=== PATIENT | female | born 1960 ===

== ENCOUNTER → 2022-09-12 09:43 | Outpatient (BNVA) | payer OTHER, SELFPAY | PROVIDERS: PCP Physician Assistant; Visit Provider Nurse Practitioner Family | DX: M54.50 Low back pain, unspecified (principal); M79.605 Pain in left leg; M47.816 Spondylosis without myelopathy or radiculopathy, lumbar region; M62.830 Muscle spasm of back; M25.562 Pain in left knee | CPT/HCPCS: 99202 ==

== ENCOUNTER 2023-08-24 10:33 | Outpatient (AMB) | payer OTHER, SELFPAY ==
[2023-08-24 11:05] VITALS: BP 158/87; PULSE 70; O2SAT 100; BMI 28.8
--- NOTE | 2023-08-24 11:05 | A.OFFVIS_ITS ---
Intake Vital Signs 3 08/24/23 11:05 Height 5 ft 2 in Weight 157 lb 6 oz BMI 28.8 BP 158/87 H Blood Pressure Location Lt brachial Position Sitting Pulse 70 Pulse Source Pulse Oximeter Pulse Oximetry (%) 100 Oxygen Delivery Method Room Air Intake Visit Reasons: LEFT LEG PAIN Intake Note: Pain today 04/04 General Operator Required: No Accompanied by: Self / Same As Patient Allergies No Known Allergies Allergy (Verified 08/24/23 11:13) HPI HPI Comments 2 History of Present Illness0 Details Patient presents today for follow up for worsening lower back pain with left sided radiculopathy. She was initially seen in our office in August 2022. Patient denies any recent trauma, injury, or falls. She completed 3 sessions of physical therapy at [facility] and had to discontinue due to increase pain. Pain increases with walking, prolonged sitting or standing or forward flexion, bending and extension. She avoids NSAIDs due to kidney disease and has been modifying her activities and applying lidocaine patches with minimal relief. Patient has severe L4-L5 and moderate L5-S1 degenerative changes per last lumbar xray imaging. We will proceed with obtaining lumbar spine MRI to assess for neural integrity and compression as well as degenerative changes on the endplates with any Modic changes. Patient denies any fever, weight loss, abdominal or groin pain, bladder or bowel dysfunction or saddle anesthesia. Patient reports intermittent weakness in her left lower extremity especially with prolonged walking. PRIOR: Patient is a pleasant 62 years old female presents with one year of lower back pain without any inciting events. Denies any injury, trauma, or falls. Her back pain is axial and also radiates to her left lower extremity posteriorly with numbness and tingling in her left calf. Pain is described as constant hot burning, scalding, searing, tingling, stinging, dull, sore, hurting, aching, and heavy. Pain is increased with walking, sitting, standing, changing positions, and weather changes. Her worst pain is upon awakening in the morning with significant stiffness and gets better as the day goes on with mild activity. Pain is rated at 9/10. She denies any previous physical therapy, massage, chiropractic manipulation, or aqua therapy. She has been treating her pain with Tylenol, diclofenac gel, heat therapy and rest. She cannot take NSAIDs due to CKD stage 3a. Patient reports she is followed by nephrology and most recent labwork did not indicate any therapy changes. Patient denies any fever, chills, weight loss, bladder or bowel incontinence, or saddle anesthesia. Patient is a smokes 6-7 cigarettes per day. She reports she quit smoking 6 years and restarted smoking due to stress in her life and not ready to quit smoking at this time. Patient is undergoing low CT dose lung scan soon. She drinks 3 cups of coffee a day. [facility] Medical History Hyperlipidemia Stage 3a chronic kidney disease Hypertension Right lumbar radiculopathy Lumbar disc disease Review of Systems Const All systems reviewed & are unremarkable except as noted in HPI and below Physical Exam Vital Signs: Last Vital Signs Pulse 70 08/24/23 11:05 BP 158/87 H 08/24/23 11:05 Pulse Ox 100 08/24/23 11:05 Oxygen Delivery Method Room Air 08/24/23 11:05 BMI result Body Mass Index 28.8 General: Appears afebrile. Alert and oriented. Mood and affect appropriate. Follows and participates in conversation appropriately. Respiratory effort is unlabored. No cough. Able to transition from sit to stand unassisted. Ambulates with bilaterally normal heel strike and toe off, reports unsteadiness on the left side with prolonged walking. Back/Spine/Pelvis Other: Limited lumbar ROM due to pain. Antalgic gait. No limping. Lumbar flexion and extension reproduce moderate pain. Mild midline tenderness overlying lower lumbar spinous processes. Painful facet loading bilaterally. 2+ pedal pulses bilaterally. Straight leg rise with dorsiflexion positive on the left, diffuse on the right. Diminished patellar and achilles reflexes bilaterally. Sean?s test positive bilaterally. No groin pain with I/E hip rotations. Unable to complete exam due to significant exacerbation of pain. Cervical Spine: loss of normal cervical lordosis, cervical muscular tenderness and No Cervical spine tenderness Thoracic/Lumbar Spine: thoracic and lumbar spine normal to inspection, No Thoracic/lumbar spine scar(s), Lasegue's sign positive (left>right) bilateral, pain with thoraco-lumbar ROM, paraspinal muscle tenderness, thoraco-lumbar ROM limited, No thoracic spinal tenderness, lumbar spinal tenderness (L4-S1) and straight leg raise positive bilateral at 50 degrees Pelvis: buttock tenderness bilaterally Sacroiliac joints: bilaterally tender to palpation Results Reviewed Results Reviewed: Assessment & Plan Assessment & Plan (1) Low back pain radiating to left lower extremity: Code(s): M54.50 - Low back pain, unspecified; M79.605 - Pain in left leg (2) Lumbar spondylosis: Code(s): M47.816 - Spondylosis without myelopathy or radiculopathy, lumbar region (3) Lumbar spinal stenosis: Code(s): M48.061 - Spinal stenosis, lumbar region without neurogenic claudication (4) Vertebrogenic low back pain: Code(s): M54.51 - Vertebrogenic low back pain Plan Patient experiences spinal stenosis related pain with discogenic and facetogenic pain components. We will proceed with obtaining lumbar spine MRI to assess for neural integrity and compression as well as degenerative changes on the endplates with any Modic changes. The back pain is function and mobility limiting and has been resistant to conservative treatments. Script provided for gabapentin at low dose for low back pain with radicular symptoms. She cannot take NSAIDs due to CKD. Side effects and precautions were reviewed with patient. Patient will return to the clinic to discuss results of the MRI findings when it is done and consider interventional therapy as indicated. Patient is aware to call if pain worsens or if he develops any red flag symptoms to seek emergency care. Patient denies any cauda equina syndrome symptoms at this time. All questions and concerns have been and patient agreed with the plan. Follow-up for MRI results and sooner as needed. Orders: Orders 2 MR lumbar spine wo con Today M47.816 - Spondylosis without myelopathy or radiculopathy, lumbar region, M48.061 - Spinal stenosis, lumbar region without neurogenic claudication, M54.50 - Low back pain, unspecified, M79.605 - Pain in left leg Medications: New 2 gabapentin 100 mg PO BEDTIME 30 caps 0RF pain M48.061 - Spinal stenosis, lumbar region without neurogenic claudication, M54.50 - Low back pain, unspecified, M79.605 - Pain in left leg Coding Level of Care Code Est Pt Level 4 (68285) Diagnoses Low back pain radiating to left lower extremity M54.50; M79.605 Lumbar spondylosis M47.816 Lumbar spinal stenosis M48.061 Vertebrogenic low back pain M54.51
== END 2023-08-24 11:39 | disposition home or self-care (01) ==
PROVIDERS: PCP Physician Assistant; Visit Provider Nurse Practitioner Family
DX: M54.50 Low back pain, unspecified (principal); M79.605 Pain in left leg; M47.816 Spondylosis without myelopathy or radiculopathy, lumbar region; M48.061 Spinal stenosis, lumbar region without neurogenic claudication; M54.51 Vertebrogenic low back pain
CPT/HCPCS: 99214

== ENCOUNTER → 2023-08-24 10:33 | Outpatient (BNVA) | payer OTHER, SELFPAY | PROVIDERS: PCP Physician Assistant; Visit Provider Nurse Practitioner Family | DX: M54.50 Low back pain, unspecified (principal); M79.605 Pain in left leg; M47.816 Spondylosis without myelopathy or radiculopathy, lumbar region; M48.061 Spinal stenosis, lumbar region without neurogenic claudication; M54.51 Vertebrogenic low back pain | CPT/HCPCS: 99212 ==

== ENCOUNTER 2023-10-13 10:21 | Outpatient (REF) | payer OTHER, SELFPAY ==
--- NOTE | ~2023-10-13 | MR_ITS ---
EXAMINATION: MR LUMBAR SPINE WITHOUT CONTRAST CLINICAL INFORMATION: Low back pain. COMPARISON: No relevant prior imaging. TECHNIQUE: MRI of the lumbar spine was obtained using routine sequences without contrast. FINDINGS: Alignment is normal. Vertebral body heights are preserved. There are type I degenerative endplate changes at L5-S1. Mixed predominantly type II and type III degenerative endplate changes at L4-L5. There is loss of intervertebral disc height and T2 signal intensity at L4-L5 and L5-S1 related to disc degeneration. The tip of the conus medullaris is located at L1-L2. No mass effect on the conus. Visualized distal cord signal intensity is normal. At L1-L2 the annular contour is normal. No canal or neuroforaminal compromise. At L2-L3 there is a bulging disc. Bilateral facet degenerative change. No canal stenosis. No mass effect on the traversing or foraminal nerve roots. At L3-L4 there is a bulging disc. Bilateral facet degenerative change. No canal stenosis. No mass effect on the traversing or foraminal nerve roots. At L4-L5 there is a diffusely bulging disc. Advanced facet degenerative change. Moderate canal stenosis. Subarticular zone narrowing causes placement of both traversing L5 nerve roots. There is also moderate compression of both L4 foraminal nerve roots. At L5-S1 there is a diffusely bulging disc. Advanced facet degenerative change. Mild canal stenosis. Severe compression of both L5 foraminal nerve roots. Limited visualization of the retroperitoneal anatomy reveals no abnormal finding. Psoas and paraspinal muscle groups are symmetric. MR/MR lumbar spine wo con IMPRESSION: There is multilevel degenerative spondylosis of the lumbar spine. Moderate canal stenosis at L4-L5. Mild canal stenosis at L5-S1. There are varying degrees of mass effect on the traversing and foraminal segments of the nerve roots as described above. For instance there is severe compression of both L5 foraminal nerve roots related to degenerative changes at L5-S1 and moderate compression of both L4 foraminal nerve roots related to degenerative changes at L4-L5.
== END 2023-10-13 10:22 | disposition home or self-care (01) ==
LOC: HO.MRI 10:21
PROVIDERS: PCP Physician Assistant; Visit Provider Nurse Practitioner Family
DX: M54.50 Low back pain, unspecified (principal); M79.605 Pain in left leg; M47.816 Spondylosis without myelopathy or radiculopathy, lumbar region; M48.061 Spinal stenosis, lumbar region without neurogenic claudication
CPT/HCPCS: 72148

== ENCOUNTER 2023-10-23 11:09 | Outpatient (AMB) | payer OTHER, SELFPAY ==
--- NOTE | 2023-10-23 11:18 | MHC.OFFVIS ---
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 Patient reports progressively worsening low back pain with bilateral radicular symptoms, left worse than right. She reports right lateral leg has been more unsteady with walking and she has to take frequent breaks during shopping or house chores. Patient reports increasing paresthesia sensations in her bilateral lateral legs and shins and at times cramping in her left calf. Denies any bladder or bowel dysfunction or saddle anesthesia. She is interested to undergo epidural steroid injection given recent lumbar spine findings as noted below and pursue Neurosurgical evaluation to potentially decompress L5 nerve roots and potentially L4 nerve roots as well. She has tried low dose gabapentin with no pain relief. Patient cannot take NSAIDs due to CKD stage 3a. Denies any recent cough, cold, infection, fever, any significant changes in her medical history, medications or recent hospitalizations. Ambulates with antalgic slow gait, uses cane with transfers and ambulation. PRIOR: Patient presents today for follow up for worsening lower back pain with left sided radiculopathy. She was initially seen in our office in August 2022. Patient denies any recent trauma, injury, or falls. She completed 3 sessions of physical therapy at [facility] and had to discontinue due to increase pain. Pain increases with walking, prolonged sitting or standing or forward flexion, bending and extension. She avoids NSAIDs due to kidney disease and has been modifying her activities and applying lidocaine patches with minimal relief. Patient has severe L4-L5 and moderate L5-S1 degenerative changes per last lumbar xray imaging. We will proceed with obtaining lumbar spine MRI to assess for neural integrity and compression as well as degenerative changes on the endplates with any Modic changes. Patient denies any fever, weight loss, abdominal or groin pain, bladder or bowel dysfunction or saddle anesthesia. Patient reports intermittent weakness in her left lower extremity especially with prolonged walking. PRIOR: Patient is a pleasant 62 years old female presents with one year of lower back pain without any inciting events. Denies any injury, trauma, or falls. Her back pain is axial and also radiates to her left lower extremity posteriorly with numbness and tingling in her left calf. Pain is described as constant hot burning, scalding, searing, tingling, stinging, dull, sore, hurting, aching, and heavy. Pain is increased with walking, sitting, standing, changing positions, and weather changes. Her worst pain is upon awakening in the morning with significant stiffness and gets better as the day goes on with mild activity. Pain is rated at 9/10. She denies any previous physical therapy, massage, chiropractic manipulation, or aqua therapy. She has been treating her pain with Tylenol, diclofenac gel, heat therapy and rest. She cannot take NSAIDs due to CKD stage 3a. Patient reports she is followed by nephrology and most recent labwork did not indicate any therapy changes. Patient denies any fever, chills, weight loss, bladder or bowel incontinence, or saddle anesthesia. Patient is a smokes 6-7 cigarettes per day. She reports she quit smoking 6 years and restarted smoking due to stress in her life and not ready to quit smoking at this time. Patient is undergoing low CT dose lung scan soon. She drinks 3 cups of coffee a day. [facility] Medical History Hyperlipidemia Stage 3a chronic kidney disease Hypertension Right lumbar radiculopathy Lumbar disc disease Review of Systems Const All systems reviewed & are unremarkable except as noted in HPI and below Physical Exam General: Appears afebrile. Alert and oriented. Mood and affect appropriate. Follows and participates in conversation appropriately. Respiratory effort is unlabored. No cough. Able to transition from sit to stand with assistance of cane. Ambulates with bilaterally normal heel strike and toe off, reports unsteadiness with walking, right>left. Back/Spine/Pelvis Other: Limited lumbar ROM due to pain. Antalgic gait, mild limping. Lumbar flexion and extension reproduce moderate pain. Mild midline tenderness overlying lower lumbar spinous processes. Painful facet loading bilaterally. 2+ pedal pulses bilaterally. Straight leg rise with dorsiflexion positive bilaterally. Diminished patellar and achilles reflexes bilaterally. Sean?s test positive bilaterally. No groin pain with I/E hip rotations. Unable to complete exam due to significant exacerbation of pain. Cervical Spine: loss of normal cervical lordosis, cervical muscular tenderness and No Cervical spine tenderness Thoracic/Lumbar Spine: thoracic and lumbar spine normal to inspection, No Thoracic/lumbar spine scar(s), Lasegue's sign positive (left>right) bilateral, pain with thoraco-lumbar ROM, paraspinal muscle tenderness, thoraco-lumbar ROM limited, No thoracic spinal tenderness, lumbar spinal tenderness (L4-S1) and straight leg raise positive bilateral at 40 degrees Pelvis: buttock tenderness bilaterally Sacroiliac joints: bilaterally (left>right) tender to palpation Results Reviewed Results Reviewed: MR LUMBAR SPINE WITHOUT CONTRAST 10/13/23 CLINICAL INFORMATION: Low back pain. FINDINGS: Alignment is normal. Vertebral body heights are preserved. There are type I degenerative endplate changes at L5-S1. Mixed predominantly type II and type III degenerative endplate changes at L4-L5. There is loss of intervertebral disc height and T2 signal intensity at L4-L5 and L5-S1 related to disc degeneration. The tip of the conus medullaris is located at L1-L2. No mass effect on the conus. Visualized distal cord signal intensity is normal. At L1-L2 the annular contour is normal. No canal or neuroforaminal compromise. At L2-L3 there is a bulging disc. Bilateral facet degenerative change. No canal stenosis. No mass effect on the traversing or foraminal nerve roots. At L3-L4 there is a bulging disc. Bilateral facet degenerative change. No canal stenosis. No mass effect on the traversing or foraminal nerve roots. At L4-L5 there is a diffusely bulging disc. Advanced facet degenerative change. Moderate canal stenosis. Subarticular zone narrowing causes placement of both traversing L5 nerve roots. There is also moderate compression of both L4 foraminal nerve roots. At L5-S1 there is a diffusely bulging disc. Advanced facet degenerative change. Mild canal stenosis. Severe compression of both L5 foraminal nerve roots. Limited visualization of the retroperitoneal anatomy reveals no abnormal finding. Psoas and paraspinal muscle groups are symmetric. IMPRESSION: There is multilevel degenerative spondylosis of the lumbar spine. Moderate canal stenosis at L4-L5. Mild canal stenosis at L5-S1. There are varying degrees of mass effect on the traversing and foraminal segments of the nerve roots as described above. For instance there is severe compression of both L5 foraminal nerve roots related to degenerative changes at L5-S1 and moderate compression of both L4 foraminal nerve roots related to degenerative changes at L4-L5. Assessment & Plan Assessment & Plan (1) Lumbar spondylosis: Code(s): M47.816 - Spondylosis without myelopathy or radiculopathy, lumbar region Category: Medical (2) Lumbar spinal stenosis: Code(s): M48.061 - Spinal stenosis, lumbar region without neurogenic claudication Category: Medical (3) Vertebrogenic low back pain: Code(s): M54.51 - Vertebrogenic low back pain Category: Medical (4) Lumbar radiculopathy: Code(s): M54.16 - Radiculopathy, lumbar region Category: Medical (5) Muscle spasm of back: Code(s): M62.830 - Muscle spasm of back Category: Medical Plan Lumbar spine MRI results were discussed with patient today. She continues to experience spinal-stenosis related pain bilaterally and her walking capacity has becoming more limited. The back pain is function and mobility limiting and has been resistant to conservative treatments. We will proceed with Neurosurgical evaluation for potential neuroforaminal L4-L5 decompression. In meantime, we will schedule Bilateral L4-L5 TFESI with local and fluoroscopy. Expectations, risks and benefits were reviewed. Patient is aware she will be contacted to schedule this procedure. Will send request to PCP for most recent lab results. All questions were answered and the patient is in agreement of plan. Follow-up after injections and sooner as needed. Orders: Referrals Neurosurgery Referral M48.061 - Spinal stenosis, lumbar region without neurogenic claudication Medications: Discontinued gabapentin Discontinued Reason: Patient no longer taking 100 mg PO BEDTIME 30 days 30 caps 2RF for pain M48.061 - Spinal stenosis, lumbar region without neurogenic claudication, M54.50 - Low back pain, unspecified, M79.605 - Pain in left leg Coding Level of Care Code Est Pt Level 4 (61231) Diagnoses Lumbar spondylosis M47.816 Lumbar spinal stenosis M48.061 Vertebrogenic low back pain M54.51 Lumbar radiculopathy M54.16 Muscle spasm of back M62.830
[2023-10-23 11:23] VITALS: BP 115/76; PULSE 84; O2SAT 98; BMI 26.9
== END 2023-10-23 11:37 | disposition home or self-care (01) ==
PROVIDERS: PCP Physician Assistant; Visit Provider Nurse Practitioner Family
DX: M47.816 Spondylosis without myelopathy or radiculopathy, lumbar region (principal); M48.061 Spinal stenosis, lumbar region without neurogenic claudication; M54.51 Vertebrogenic low back pain; M54.16 Radiculopathy, lumbar region; M62.830 Muscle spasm of back
CPT/HCPCS: 99214

== ENCOUNTER → 2023-10-23 11:09 | Outpatient (BNVA) | payer OTHER, SELFPAY | PROVIDERS: PCP Physician Assistant; Visit Provider Nurse Practitioner Family | DX: M54.51 Vertebrogenic low back pain (principal); M47.816 Spondylosis without myelopathy or radiculopathy, lumbar region; M48.061 Spinal stenosis, lumbar region without neurogenic claudication; M54.16 Radiculopathy, lumbar region; M62.830 Muscle spasm of back; N18.31 Chronic kidney disease, stage 3a | CPT/HCPCS: 99212 ==

== ENCOUNTER 2023-10-31 13:32 | Outpatient (AMB) | payer OTHER, SELFPAY ==
--- NOTE | 2023-10-31 13:37 | HO.SPINEOV ---
Vital Signs 10/31/23 13:50 Height 5 ft 2 in Weight 146 lb BMI 26.7 Intake Visit Reasons: spinal stenosis Intake Note: Ms. Pedroza is here today c/o left leg pain and numbness of foot. Allergies No Known Allergies Allergy (Verified 10/31/23 13:41) Physical Exam Vital Signs: BMI result Body Mass Index 26.7 Assessment & Plan Assessment & Plan (1) Lumbar stenosis with neurogenic claudication: Code(s): M48.062 - Spinal stenosis, lumbar region with neurogenic claudication Category: Medical Plan Dear colleague, Thank you for referring Iris to our office today. She is a pleasant 63-year-old female comes in today with a chief complaint of low back pain with radiation to her left lower extremity. When describing the radiation of her pain she states it travels all the way down the posterior aspect of her left leg and also encompasses her left lateral tibialis, and the dorsal surface of her left foot. She reports that this has been ongoing for the past 1 year. She denies an inciting incident, and states it happened idiopathically. Of note, she is currently being followed by pain management who has trialed a course of gabapentin alongside a full course of physical therapy for her without symptom relief. They referred her over to us for surgical evaluation given the severe degeneration seen on MRI. She has tried a plethora of [id number] medications including Tylenol, ibuprofen, pain patches, and pain creams without significant symptom relief. She states that walking exacerbates her symptoms and sitting down and resting helps to alleviate her symptoms. Thankfully, she is still able to complete her grocery shopping, and other basic needs at the assistance of a material assistant. PMH: Asthma, hyperlipidemia, anxiety, high blood pressure. Social hx: Patient smokes 6 cigarettes per day. Reports no substance use. Medications: Albuterol, atorvastatin, gabapentin, hydroxyzine, lidocaine, lisinopril-hydrochlorothiazide, mirtazapine, paroxetine. Allergies: NKDA. Physical exam: The patient has 4/5 strength diffusely throughout her left lower extremity. She has 5/5 strength elsewhere. She has no significant sensational deficits. Her reflexes are 2+ intact. She is able to ambulate well and rises from seated position without much difficulty. (-) Christie's, (-) clonus, (-) bilateral straight leg raise. Imaging review: [place] of the lumbar spine [place] [facility] [place] severe degenerative disc disease at L4-5 and L5-S1 with type 5 degenerative Modic endplate changes noted between L4-5. There is also severe bilateral foraminal stenosis at L4-5 and L5-S1 (worse at L4-5). Impression: Chana is a pleasant 63-year-old female who comes in today with a chief complaint of low back pain with radiation into her left lower extremity. She states the pain in her left lower extremity is far worse than the pain in her low back. She has severe degenerative disc disease at L4-5 and L5-S1. The foramen are severely stenotic at both these levels as well. I believe it is likely that she will also become symptomatic on the right sooner than later given the amount of compression seen on MRI imaging. Her radicular symptoms are in a classic L4-5, L5-S1 dermatomal distribution. We discussed the potential interventions for this which may include lumbar decompression, or lumbar fusion. We discussed that she would likely be a candidate for a [address] Aguilar decided this was the route he chooses to take. I reviewed her MRI with her and showed her both our spine models and few of our fusion models so she is thoroughly educated on what this would entail. I will discuss this case with Dr. Aguilar tomorrow during our clinic hours and get back to the patient with his decision. Thank you for allowing us to care for your patient. The total time spent with this visit with this patient was 45 minutes reviewing history, physical exam, MRI imaging review, and implementation of treatment plan or further diagnostic testing. Lenin Aguilar MD,PhD [facility] Coding Level of Care Code New Pt Level 4 (56586) Diagnoses Lumbar stenosis with neurogenic claudication M48.062
[2023-10-31 13:50] VITALS: BMI 26.7
== END 2023-10-31 14:59 | disposition home or self-care (01) ==
PROVIDERS: PCP Physician Assistant; Referring Provider Anesthesiology; Visit Provider Physician Assistant
DX: M48.062 Spinal stenosis, lumbar region with neurogenic claudication (principal)
CPT/HCPCS: 99204

== ENCOUNTER → 2023-10-31 13:32 | Outpatient (BNVA) | payer OTHER, SELFPAY | PROVIDERS: PCP Physician Assistant; Visit Provider Physician Assistant | DX: M48.062 Spinal stenosis, lumbar region with neurogenic claudication (principal); M51.37 Other intervertebral disc degeneration, lumbosacral region | CPT/HCPCS: 99202 ==

== ENCOUNTER 2023-11-28 06:47 | Outpatient (REF) | payer OTHER, SELFPAY ==
--- NOTE | ~2023-11-28 | FL_ITS ---
EXAMINATION: XR FLUOROSCOPY WITH IMAGES CLINICAL INFORMATION: Lumbar radiculopathy. COMPARISON: None available. TECHNIQUE: Fluoroscopy Supervised By: Dr. Rose. Fluoroscopy Time: 0.6 min. Cumulative Dose: 17.9 mGy. DAP: 0.3111 mGym2. Images: Number of images not given. FINDINGS: Intraoperative fluoroscopy and spot films were performed during a procedure in the OR. Spinal needles are present at the L4-L5 level with contrast media seen in the epidural space. Please see Dr. Rose's report for complete details. FL/FL guidance in treatment room IMPRESSION: Intraoperative fluoroscopy and spot films were obtained. Please see Dr. Rose's report for complete details.
== END 2023-11-28 06:48 | disposition home or self-care (01) ==
LOC: CF 06:47
PROVIDERS: Visit Provider Anesthesiology
DX: M54.16 Radiculopathy, lumbar region (principal); M48.062 Spinal stenosis, lumbar region with neurogenic claudication
CPT/HCPCS: 64483; 64484; J3301; Q9967

== ENCOUNTER 2023-11-28 08:56 | Outpatient (AMB) | payer OTHER, SELFPAY ==
--- NOTE | 2023-11-28 09:35 | MHC.OFFVIS ---
Vital Signs 11/28/23 10:50 11/28/23 10:50 Height 5 ft 2 in Weight 146 lb BMI 26.7 BP 126/76 120/70 Blood Pressure Location Lt brachial Lt brachial Position Sitting Sitting Respiration 14 16 Pulse 72 68 Pulse Source Pulse Oximeter Pulse Oximeter Pulse Oximetry (%) 97 94 Oxygen Delivery Method Room Air Room Air Comment Pre-Op Post-Op Intake Visit Reasons: BILATERAL L4, L5 TFESI Allergies No Known Allergies Allergy (Verified 10/31/23 13:41) PFSH Medical History Hyperlipidemia Stage 3a chronic kidney disease Hypertension Right lumbar radiculopathy Lumbar disc disease Physical Exam Vital Signs: Last Vital Signs Pulse 68 11/28/23 10:50 Resp 16 11/28/23 10:50 BP 120/70 11/28/23 10:50 Pulse Ox 94 11/28/23 10:50 Oxygen Delivery Method Room Air 11/28/23 10:50 BMI result Body Mass Index 26.7 Assessment & Plan Assessment & Plan (1) Lumbar stenosis with neurogenic claudication: Code(s): M48.062 - Spinal stenosis, lumbar region with neurogenic claudication Category: Medical Plan Transforaminal bilateral L4-5 epidural steroid injection. Informed consent was thoroughly explained to the patient before the procedure.? The patient came to the operating room.? He was positioned prone on operating table with a pillow under his abdomen.? Time-out was performed delineating correct site and side of the procedure, nature of the injection, name and date of of the patient. The lower back of the patient was prepped with ChloraPrep and draped with sterile utility towels.? C-arm was brought over the operating field and sq picture of- L4 vertebra were demonstrated on the screen.? The right side was chosen as the side of the injection.? Tilting machine ipsilateral to the right the most prominent picture of the right pedicle was obtained on the screen.? 3 mm below the level of the lowest point of the pedicle projection to the skin small amount of lidocaine 1% 3-4 cc was injected to anesthetize the skin.? After that 5 in 22 gauge Quincke point needle was inserted through the skin wheal and was advanced to were the L4-5 foramina on anterior posterior , lateral and oblique views intermittently.? When tip of the needle entered foramina projection on AP view the patient complained on radiculopathic pain radiating into the right lower extremity. The decision was made to perform right-sided injection in around L5 superior articular process. The machine was tilted again ipsilateral to the right 25 degrees and lateral border of the superior articular process projection to the skin was was injected with 1% lidocaine. After that 22 gauge 5 in needle was inserted through the skin wheal and advanced in tunnel vision fashion to were the superior articular process. When the needle gently contacted the bone it was deviated 1st laterally and after that few mm it was deviated back medially to reach the foramina. The advancement of the needle was done on anterior posterior view. However when needle passed only 5 mm injection of the contrast was performed and it delineated intra discal spread of the contrast. The needle was withdrawn from the disc and positioned back into the epidural space. Injection of the contrast was performed delineating anterior and posterior epidurogram. After that 5 cc of lidocaine 1% mixed with Kenalog 40 mg was injected into the needle. After that needle was withdrawn and attention was concentrated on the left side. The procedure on the left side was performed around left-sided superior articular process of L5 in mirroring fashion to the description of the above. Epidural spread of the contrast was demonstrated on anterior posterior view. After that injection of the lidocaine 1% mixed with Kenalog 40 mg was performed on the left side as well. Upon completion of the injection needles were withdrawn sterile Band-Aid was applied. The patient tolerated procedure well. Orders: Orders FL guidance in treatment room Today M54.16 - Radiculopathy, lumbar region Coding Level of Care Code Procedure Only Diagnoses Lumbar stenosis with neurogenic claudication M48.062
[2023-11-28 10:50] VITALS: BP 120/70; BP 126/76; PULSE 68; PULSE 72; RESP 14; RESP 16; O2SAT 94; O2SAT 97; BMI 26.7
== END 2023-11-28 10:28 | disposition home or self-care (01) ==
LOC: HO.PMCPRC 08:56
PROVIDERS: PCP Physician Assistant; Visit Provider Anesthesiology
DX: M48.062 Spinal stenosis, lumbar region with neurogenic claudication (principal)
CPT/HCPCS: 64483; 64484

== ENCOUNTER 2023-12-19 10:18 | Outpatient (AMB) | payer OTHER, SELFPAY ==
--- NOTE | 2023-12-19 10:22 | MHC.OFFVIS ---
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 Rose. Patient reports 100% ongoing pain relief since procedure with significant improvement in her daily activities and functioning, mobility and sleep. She denies any untoward effects after injections except recent onset of left calf pain with localized tenderness for past few days. There is no swelling or edema of left lower extremity. Low probability for DVT. Denies any recent injury, trauma or falls. We will proceed with ultrasonography without D-dimer testing at this time. Denies any recent cough, cold, infection, fever, any significant changes in her medical history, medications or recent hospitalizations. Patient is scheduled to undergo L4-5, L5-S1 transkambin lumbar interbody fusion on 01/30/[address] Aguilar. Past Procedures: 11/28/23: Bilateral L4-L5 TFESI-100% ongoing pain relief PRIOR: Patient presents today for follow up to review recent lumbar spine MRI results. Patient reports progressively worsening low back pain with bilateral radicular symptoms, left worse than right. She reports right lateral leg has been more unsteady with walking and she has to take frequent breaks during shopping or house chores. Patient reports increasing paresthesia sensations in her bilateral lateral legs and shins and at times cramping in her left calf. Denies any bladder or bowel dysfunction or saddle anesthesia. She is interested to undergo epidural steroid injection given recent lumbar spine findings as noted below and pursue Neurosurgical evaluation to potentially decompress L5 nerve roots and potentially L4 nerve roots as well. She has tried low dose gabapentin with no pain relief. Patient cannot take NSAIDs due to CKD stage 3a. Denies any recent cough, cold, infection, fever, any significant changes in her medical history, medications or recent hospitalizations. Ambulates with antalgic slow gait, uses cane with transfers and ambulation. PRIOR: Patient presents today for follow up for worsening lower back pain with left sided radiculopathy. She was initially seen in our office in August 2022. Patient denies any recent trauma, injury, or falls. She completed 3 sessions of physical therapy at [facility] and had to discontinue due to increase pain. Pain increases with walking, prolonged sitting or standing or forward flexion, bending and extension. She avoids NSAIDs due to kidney disease and has been modifying her activities and applying lidocaine patches with minimal relief. Patient has severe L4-L5 and moderate L5-S1 degenerative changes per last lumbar xray imaging. We will proceed with obtaining lumbar spine MRI to assess for neural integrity and compression as well as degenerative changes on the endplates with any Modic changes. Patient denies any fever, weight loss, abdominal or groin pain, bladder or bowel dysfunction or saddle anesthesia. Patient reports intermittent weakness in her left lower extremity especially with prolonged walking. PRIOR: Patient is a pleasant 62 years old female presents with one year of lower back pain without any inciting events. Denies any injury, trauma, or falls. Her back pain is axial and also radiates to her left lower extremity posteriorly with numbness and tingling in her left calf. Pain is described as constant hot burning, scalding, searing, tingling, stinging, dull, sore, hurting, aching, and heavy. Pain is increased with walking, sitting, standing, changing positions, and weather changes. Her worst pain is upon awakening in the morning with significant stiffness and gets better as the day goes on with mild activity. Pain is rated at 9/10. She denies any previous physical therapy, massage, chiropractic manipulation, or aqua therapy. She has been treating her pain with Tylenol, diclofenac gel, heat therapy and rest. She cannot take NSAIDs due to CKD stage 3a. Patient reports she is followed by nephrology and most recent labwork did not indicate any therapy changes. Patient denies any fever, chills, weight loss, bladder or bowel incontinence, or saddle anesthesia. Patient is a smokes 6-7 cigarettes per day. She reports she quit smoking 6 years and restarted smoking due to stress in her life and not ready to quit smoking at this time. Patient is undergoing low CT dose lung scan soon. She drinks 3 cups of coffee a day. [facility] Medical History Hyperlipidemia Stage 3a chronic kidney disease Hypertension Right lumbar radiculopathy Lumbar disc disease Review of Systems Const All systems reviewed & are unremarkable except as noted in HPI and below Denies body aches, Denies chills, Denies fatigue, Denies fever(s), Denies frequent falls, Denies headache(s), Denies malaise, Denies night sweats and Denies weakness ENT Denies headache(s) Card Denies chest pain with activity, Denies lightheadedness and Denies dyspnea on exertion Resp Denies cough and Denies dyspnea on exertion Musc Reports as per HPI, Denies back pain, Denies myalgias and Denies radiating pain into limb Skin/Breast Reports as per HPI, Denies erythema, Denies rash, Denies skin pain and Denies skin swelling Neuro Denies burning sensations, Denies frequent falls, Denies headache(s), Denies radicular pain and Denies weakness Endo Denies fatigue Physical Exam Vital Signs: Last Vital Signs Pulse 75 12/19/23 10:24 BP 114/66 12/19/23 10:24 Pulse Ox 98 12/19/23 10:24 Oxygen Delivery Method Room Air 12/19/23 10:24 BMI result Body Mass Index 26.9 General: Appears afebrile. Alert and oriented. Mood and affect appropriate. Follows and participates in conversation appropriately. Respiratory effort is unlabored. No cough. Able to transition from sit to stand with assistance of cane. Ambulates with bilaterally normal heel strike and toe off, reports occasional imbalance with walking, right>left. Extrem General: Yes capillary refill normal, Yes no clubbing, cyanosis or edema and Yes calf tenderness (left, no swelling, no redness) Results Reviewed Results Reviewed: MR LUMBAR SPINE WITHOUT CONTRAST 10/13/23 CLINICAL INFORMATION: Low back pain. FINDINGS: Alignment is normal. Vertebral body heights are preserved. There are type I degenerative endplate changes at L5-S1. Mixed predominantly type II and type III degenerative endplate changes at L4-L5. There is loss of intervertebral disc height and T2 signal intensity at L4-L5 and L5-S1 related to disc degeneration. The tip of the conus medullaris is located at L1-L2. No mass effect on the conus. Visualized distal cord signal intensity is normal. At L1-L2 the annular contour is normal. No canal or neuroforaminal compromise. At L2-L3 there is a bulging disc. Bilateral facet degenerative change. No canal stenosis. No mass effect on the traversing or foraminal nerve roots. At L3-L4 there is a bulging disc. Bilateral facet degenerative change. No canal stenosis. No mass effect on the traversing or foraminal nerve roots. At L4-L5 there is a diffusely bulging disc. Advanced facet degenerative change. Moderate canal stenosis. Subarticular zone narrowing causes placement of both traversing L5 nerve roots. There is also moderate compression of both L4 foraminal nerve roots. At L5-S1 there is a diffusely bulging disc. Advanced facet degenerative change. Mild canal stenosis. Severe compression of both L5 foraminal nerve roots. Limited visualization of the retroperitoneal anatomy reveals no abnormal finding. Psoas and paraspinal muscle groups are symmetric. IMPRESSION: There is multilevel degenerative spondylosis of the lumbar spine. Moderate canal stenosis at L4-L5. Mild canal stenosis at L5-S1. There are varying degrees of mass effect on the traversing and foraminal segments of the nerve roots as described above. For instance there is severe compression of both L5 foraminal nerve roots related to degenerative changes at L5-S1 and moderate compression of both L4 foraminal nerve roots related to degenerative changes at L4-L5. Assessment & Plan Assessment & Plan (1) Pain of left calf: Code(s): M79.662 - Pain in left lower leg Category: Medical (2) Lumbar spondylosis: Code(s): M47.816 - Spondylosis without myelopathy or radiculopathy, lumbar region Category: Medical (3) Lumbar radiculopathy: Code(s): M54.16 - Radiculopathy, lumbar region Category: Medical (4) Lumbar stenosis with neurogenic claudication: Code(s): M48.062 - Spinal stenosis, lumbar region with neurogenic claudication Category: Medical Plan Patient is status post Bilatearl L4-L5 TFESI with 100% ongoing pain relief. She is scheduled to undergo L4-5, L5-S1 transkambin lumbar interbody fusion on 01/30/[address] Aguilar. For recent onset of left calf pain with localized tenderness for past few days without swelling, redness or edema of left lower extremity, we will proceed with ultrasonography without D-dimer testing at this time. Patient is aware to follow up with PCP if LLE symptoms worsen or seek medical evaluation in ER or Urgent clinic. All questions were answered and the patient is in agreement of plan. Follow-up US results and sooner as needed. Orders: Orders US venous duplex LE LT Today M79.662 - Pain in left lower leg Coding Level of Care Code Est Pt Level 4 (84151) Diagnoses Pain of left calf M79.662 Lumbar spondylosis M47.816 Lumbar radiculopathy M54.16 Lumbar stenosis with neurogenic claudication M48.062
[2023-12-19 10:24] VITALS: BP 114/66; PULSE 75; O2SAT 98; BMI 26.9
== END 2023-12-19 10:36 | disposition home or self-care (01) ==
PROVIDERS: PCP Physician Assistant; Visit Provider Nurse Practitioner Family
DX: M79.662 Pain in left lower leg (principal); M47.816 Spondylosis without myelopathy or radiculopathy, lumbar region; M54.16 Radiculopathy, lumbar region; M48.062 Spinal stenosis, lumbar region with neurogenic claudication
CPT/HCPCS: 99214

== ENCOUNTER → 2023-12-19 10:18 | Outpatient (BNVA) | payer OTHER, SELFPAY | PROVIDERS: PCP Physician Assistant; Visit Provider Nurse Practitioner Family | DX: M79.662 Pain in left lower leg (principal); M47.26 Other spondylosis with radiculopathy, lumbar region; M48.062 Spinal stenosis, lumbar region with neurogenic claudication; N18.31 Chronic kidney disease, stage 3a | CPT/HCPCS: 99212 ==

== ENCOUNTER 2024-01-30 06:13 | Inpatient (IN) | payer OTHER, SELFPAY ==
[2024-01-16 10:21] VITALS: BP 138/75; PULSE 63; RESP 20; O2SAT 98; BMI 26.5
--- NOTE | 2024-01-16 10:35 | P.CONAN_ITS ---
Documented by User: Shannan Sosa NP 01/24/24 13:10 HPI - Anesthesia Eval Consult details Narrative: 63yo F for L4-5,L5-S1 Transkambin Lumbar Interbody Fusion, 01/30/24 Medically optimized per PCP. (Tx for UTI preop) No recent illness No SOB, CP with walking DM: Recent dx, does not check POC at home Asthma: Stable, rare albuterol PMFSH Active Problems Active Problems: All Active Problems Pain of left calf (Acute) Lumbar stenosis with neurogenic claudication (Acute) Lumbar radiculopathy (Acute) Vertebrogenic low back pain (Acute) Lumbar spinal stenosis (Acute) Left knee pain (Acute) Muscle spasm of back (Acute) Low back pain radiating to left lower extremity (Acute) Lumbar spondylosis (Acute) Past Medical History Medical History Family history of anesthesia complication Diabetes Panic attacks Murmur Anxiety Asthma Hyperlipidemia Stage 3a chronic kidney disease Hypertension Right lumbar radiculopathy Lumbar disc disease Family History Family history of problems with anesthesia: Yes (PONV mom and sister) Surgical History Surgical History H/O colonoscopy Hx of hysterectomy History of bladder suspension procedure History of Problems with Anesthesia: No Social History Social History Are you a primary health care administrator to a significant other at home: No 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 If so, by whom?: No Are you DNR?: Yes Advance Directives Information Provided: Yes (as above noted) Recently lost weight without trying: No Eating poorly because of decreased appetite: No Nutrition Risks: No Nutritional Risk Poor oral hygiene: No (upper full denture) Meds Allergies Allergy/AdvReac Type Severity Reaction Status Date / Time No Known Allergies Allergy Verified 12/19/23 10:26 Home Medications ?Medication ?Instructions ?Recorded ?Confirmed ?Last Taken ?Type albuterol sulfate 90 mcg/actuation 90 mcg inhalation Q4H PRN 09/12/22 01/16/24 12/28/23 History aerosol inhaler (Ventolin HFA) Shortness Of Breath Or Wheezing atorvastatin 20 mg tablet 20 mg PO BEDTIME 09/12/22 01/16/24 01/29/24 History hydroxyzine HCl 25 mg tablet 25 mg PO TID 09/12/22 01/16/24 01/29/24 History lisinopril 20 1 tab PO DAILY 09/12/22 01/25/24 01/29/24 History mg-hydrochlorothiazide 12.5 mg tablet mirtazapine 45 mg tablet 45 mg PO BEDTIME 09/12/22 01/16/24 01/29/24 History paroxetine HCl 40 mg tablet 40 mg PO DAILY 09/12/22 01/25/24 01/29/24 History gabapentin 100 mg capsule 100 mg PO BEDTIME 10/31/23 01/16/24 01/29/24 History allopurinol 100 mg tablet 100 mg PO DAILY 01/16/24 01/25/24 01/29/24 History lidocaine 5 % topical patch 2 patch topical DAILY PRN pain 01/16/24 01/16/24 01/29/24 History metformin 500 mg tablet 500 mg PO DAILY 01/16/24 01/25/24 01/29/24 History Exam Height,Weight and Vital Signs: Height 5 ft 2 in Weight 65.771 kg Last Vital Signs Pulse 63 01/16/24 10:21 Resp 20 01/16/24 10:21 BP 138/75 01/16/24 10:21 Pulse Ox 98 01/16/24 10:21 O2 Del Method Room Air 01/16/24 10:21 Pertinent Lab Results Pertinent Lab Results: CBC, BMP, A1C 01/17/24 from outside facility [place] Narrative Narrative: EKG 12/2023 SA @ 67 Premature supraventricular complexes Airway Mallampati Class: III TM Dist: >3cm Neck ROM: Full Denture: Upper Loose/Missing/Broken Teeth: Yes (Lower molars missing) Heart: RRR Lungs: CTAB, dim bases Assessment and Plan Assessment Anesthesia Assessment: Anesthesia Plan Discussed (Pt verbalized understanding of periop DNR reversal), Smoking Cess. Discussed and PAT Visit Final Anesthetic Review Family History of Problems with Anesthesia: Yes (PONV mom and sister) History of Problems with Anesthesia: No Documented by User: Julian Priest MD 01/30/24 09:15 [facility] Past Medical History Medical History Family history of anesthesia complication Diabetes Panic attacks Murmur Anxiety Asthma Hyperlipidemia Stage 3a chronic kidney disease Hypertension Right lumbar radiculopathy Lumbar disc disease Surgical History Surgical History H/O colonoscopy Hx of hysterectomy History of bladder suspension procedure Social History Social History Are you a primary health care administrator to a significant other at home: No 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 If so, by whom?: No Are you DNR?: Yes Advance Directives Information Provided: Yes (as above noted) Recently lost weight without trying: No Eating poorly because of decreased appetite: No Nutrition Risks: No Nutritional Risk Poor oral hygiene: No (upper full denture) Meds Allergies Allergy/AdvReac Type Severity Reaction Status Date / Time No Known Allergies Allergy Verified 12/19/23 10:26 Home Medications ?Medication ?Instructions ?Recorded ?Confirmed ?Last Taken ?Type albuterol sulfate 90 mcg/actuation 90 mcg inhalation Q4H PRN 09/12/22 01/16/24 12/28/23 History aerosol inhaler (Ventolin HFA) Shortness Of Breath Or Wheezing atorvastatin 20 mg tablet 20 mg PO BEDTIME 09/12/22 01/16/24 01/29/24 History hydroxyzine HCl 25 mg tablet 25 mg PO TID 09/12/22 01/16/24 01/29/24 History lisinopril 20 1 tab PO DAILY 09/12/22 01/25/24 01/29/24 History mg-hydrochlorothiazide 12.5 mg tablet mirtazapine 45 mg tablet 45 mg PO BEDTIME 09/12/22 01/16/24 01/29/24 History paroxetine HCl 40 mg tablet 40 mg PO DAILY 09/12/22 01/25/24 01/29/24 History gabapentin 100 mg capsule 100 mg PO BEDTIME 10/31/23 01/16/24 01/29/24 History allopurinol 100 mg tablet 100 mg PO DAILY 01/16/24 01/25/24 01/29/24 History lidocaine 5 % topical patch 2 patch topical DAILY PRN pain 01/16/24 01/16/24 01/29/24 History metformin 500 mg tablet 500 mg PO DAILY 01/16/24 01/25/24 01/29/24 History Assessment and Plan Final Anesthetic Review NPO: Yes ASA Class: III Final Preanesthetic Review: No Changes in Pt Med Stat, Meds/Allgs Chart Reviewed, Consent Obtained/Reviewed and Anes Risks/Benef Reviewed Patient Risk: Intermediate Procedure Risk: Low Anesthetic Plan Anesthetic Plan: GA Disposition: Standard PACU
--- OUTSIDE RECORDS SUMMARY | 2024-01-25 08:58 | XMS_ITS | Continuity of Care Document ---
Author Organization [facility] Address [address] [place] [address]- Care Team Providers Care Dipper Fish Name Role Phone Sarah Yost Primary Care Physician [phone] Encounter [facility] – [place] Date(s): 10/19/22 - 11/18/[address] [id number] Attending Physician: Greta Boo Admitting Physician: Greta Boo Referring Physician: AdmtrGreta Allergies, Adverse Reactions, Alerts No Known Allergies Medications aspirin 81 mg oral delayed release tablet 81 mg, 1, tablet, By Mouth, Daily, Refills 0, Maintenance, 10/01/20 12:00:00 EDT, Partial fill uponpatient request if the prescription is for a schedule II opioid drug. Start Date: 10/01/20 Status: Ordered atorvastatin 10 mg oral tablet 1 tablet = 10 mg, By Mouth, Daily at bedtime, 0 Refills, Maintenance, 10/01/20 13:20:00 EDT, Partial fill upon patient request if the prescription is for a schedule II opioid drug. Start Date: 10/01/20 Status: Ordered gabapentin 100 mg oral capsule 200 mg, 2, capsule, By Mouth, Daily at bedtime, Refills 0, Maintenance, 05/09/18 7:53:04 EST Start Date: 05/09/18 Status: Ordered hydrochlorothiazide-lisinopril 12.5 mg-20 mg oral tablet 1 tablet, By Mouth, Daily in AM, # 90 tablet, 0 Refills, Maintenance, 08/24/18 9:47:11 EST, Tablet Start Date: 08/24/18 Status: Ordered mirtazapine 15 mg oral tablet 1 tablet = 15 mg, By Mouth, Daily at bedtime Start Date: 12/26/17 Status: Ordered PARoxetine 20 mg oral tablet 20 mg, 1, tablet, By Mouth, Daily, Refills 0, Maintenance, 08/24/18 9:49:26 EST Start Date: 08/24/18 Status: Ordered ProAir HFA 2 puffs, Inhalation, 4 times a day, PRN Wheezing/Shortness of Breath, 0 Refills, Maintenance, 09/17/13 10:56:46 EDT Start Date: 09/17/13 Status: Ordered Problem List Condition Confirmation Course Effective Dates Status Health St atus Informant HTN - Hypertension Confirmed Active Well female adult Confirmed Active Social History Social History Type Response Smoking Status Current every day sm oker; Tobacco use times per day: 7 cigarettes/day; entered on: 12/26/17 Sex Patient Care team information Care Team Personnel Name: Sarah Yost Position: [facility] Associate Professional Member Role: PCP Address: Address: [address] [place] [address]- Name: Piotr Pratt MD Position: [facility] Renal MD Member Role: Lifetime Consulting Physician Address: Address: [address] [facility], [place] [address]- Care Team Related Persons Name: ANGELES OQUENDO Address: home [address] [place] [address]
--- OUTSIDE RECORDS SUMMARY | 2024-01-25 08:58 | XMS_ITS | Continuity of Care Document ---
Author Organization [facility] Address [address] [place] [address]- Care Team Providers Care Assistant Manager Retail Name Role Phone Sarah Yost Primary Care Physician [phone] [id number] Date(s): 09/20/22 - 10/20/[address] [address]- Encounter Diagnosis Low back pain, unspecified(Final) - Discharge Disposition: A-D/C Home Attending Physician: Sarah Yost Admitting Physician: Sarah Yost Referring Physician: Ana Cristina Travis NP Allergies, Adverse Reactions, Alerts No Known Allergies [...] Response Smoking Status Current every day sm radhaer; Tobacco use times per day: 7 cigarettes/day; entered on: 12/26/17 Sex Patient Care team information Care Team Personnel Name: Sarah Yost Position: [facility] Associate Professional Member Role: PCP Address: Address: [address] [place] [address]- Name: Piotr Pratt MD Position: [facility] Renal MD Member Role: Lifetime Consulting Physician Address: Address: [address] [facility] [place] [address]- Care Team Related Persons Name: ANGELES OQUENDO Address: home [address] [place] [address]
--- NOTE | 2024-01-25 09:33 | PHA.MEDREC ---
Pharmacy Consult ? Medication Reconciliation Pharmacy has completed the medication reconciliation. Reviewed med rec done by nursing.
[2024-01-30] VITALS (18 sets, daily range): BP systolic 123–184; BP diastolic 68–93; PULSE 66–103; RESP 12–18; TEMP 36.1–36.8; O2SAT 95–98
--- NOTE | 2024-01-30 | ECG_ITS ---
Test Reason : ischemia Blood Pressure : / mmHG Vent. Rate : 089 BPM Atrial Rate : 089 BPM P-R Int : 158 ms QRS Dur : 090 ms QT Int : 392 ms P-R-T Axes : 045 019 035 degrees QTc Int : 476 ms Normal sinus rhythm Normal ECG No previous ECGs available Referred By: Yin Wade Electronically Signed By:VONDA VALENZUELA MD
--- NOTE | ~2024-01-30 | FL_ITS ---
EXAMINATION: XR FLUOROSCOPY WITH IMAGES CLINICAL INFORMATION: L4-L5 and L5-S1 translaminar laminar lumbar interbody fusions. COMPARISON: Fluoroscopy dated 12/28/2023; portions of the MRI lumbar spine dated 10/13/2023. TECHNIQUE: Fluoroscopy Supervised By: Dr. Sai Aguilar. Fluoroscopy Time: 2 minutes and 1 second. Cumulative Dose: 71.212 mGy. DAP: 21.317 Gycm2. Images: 3. FINDINGS: The initial submitted image shows a probe at the L5-S1 posterior elements. The second submitted image shows a probe directed at the L3-L4 posterior elements. An L5-S1 disc spacer is seen on this image. The final image shows fixator rods, pedicular screws and disc spacers related to L4 through S1 posterior fusion and discectomies. FL/FL guidance in OR IMPRESSION: Intraoperative fluoroscopic guidance is provided during L4-L5 and L5-S1 translaminar laminar lumbar interbody fusions. Please see the patient's Operative Report for full procedural details.
--- NOTE | 2024-01-30 07:00 | P.HPSUR_ITS ---
Pre-Procedural Eval Section A - 24 Hr Update-Section A only Date of Service: 01/30/24 Section B - Complete if H&P > 30 days Chief Complaint: Spinal fusion Allergies: Allergies Allergy/AdvReac Type Severity Reaction Status Date / Time No Known Allergies Allergy Verified 12/19/23 10:26 Review of Systems Sugical H&P ROS: Negative: Constitution, Cardiovascular, Respiratory, Neurol ogical, Psychiatric, Hem-Onc, Allergic/Immunologic, Gastrointestinal, Genitourinary, Musculoskeletal, Integumentary, Endocrine and Eyes/Ears/Nose/Throat Exam Surgical H&P Exam: Not Evaluated: HEENT, Not Evaluated: Heart, Not Evaluated: Lungs, Not Evaluated: Extremities, Not Evaluated: Abdomen, Not Evaluated: Skin and Not Evaluated: Neurological Exam Comment: The patient is well-appearing & in no acute distress. No signs of recent surgeries / scarring near the surgical incision site. Continues to report low back pain with a radiculopathy into her left side. Plan I have reviewed the history and physical and performed a pertinent physical examination on my patient. No changes have occurred unless specified. Plan remains the same, L4-S1 Transkambin lumbar fusion. Time Spent With Patient Time: Total time managing care of this patient today __7__ minutes.
[2024-01-30] MEDS: Lactated Ringers 1,000 ML 100 ML IVCONT (07:09)
[2024-01-30 07:11] LABS: Glucose, Whole Blood 125 mg/dL (60-115)
[2024-01-30] MEDS: Gabapentin 300 MG CAPSULE PO ×3 (07:16→21:14)
[2024-01-30] MEDS: methocarbamoL 750 MG TABLET PO (07:17)
--- NOTE | 2024-01-30 08:02 | PHA.MEDREC ---
Pharmacy Consult ? Medication Reconciliation Pharmacy has reviewed the medication reconciliation done by RN.
--- NOTE | 2024-01-30 09:21 | P.OP_ITS ---
Operative Note Operative Note Date of Service: 01/30/24 Narrative: Preoperative diagnosis: 1) L4-5 and L5-S1 degenerative disc disease 2) lumbar radiculopathy and back pain Postprocedure diagnosis: 1) same as above Procedure: 1) L4-5, L5-S1 oblique lateral lumbar interbody fusion with discectomy, preparation of the endplates and placement of a titanium bullet cage packed with allograft, anterior to the transverse process in modified prone position, with intraoperative biplanar fluoroscopy imaging and electrophysiological monitoring 2) L4-S1 posterior minimally invasive pedicle screw placement and posterior lateral instrumentation and fusion with intraoperative biplanar fluoroscopic imaging and electrophysiological monitoring 3 injection of 10 cc of Exparel at the bilateral L4 transverse process for a muscular erector spinae block and additional Exparel in paravertebral tissue for postop management Consent Informed Consent was obtained for this operation. I have explained the nature, purpose and benefits of the operation. I have discussed the risks and benefit of the operation including possible complications or adverse events with patient/family. Alternative(s) were discussed with the patient with their relative benefits and risks as well as the consequences of not accepting the operation were included in obtaining consent. Surgeon: ERASMO CASTANEDA MD, PHD Procedure Assisted By: MAKENNA Chanel Description of Procedure: This is a complex surgery on the lumbar spine and an assistant plant controller as needed for safety of the surgery for setup of instrumentation, retraction and closing. History: This 63-year-old female suffering from back pain and left leg pain. An MRI shows severe lumbar degenerative disc disease L4-5 and L5-S1 with foraminal stenosis. The patient was offered an oblique lumbar lateral interbody fusion followed by a posterior lateral instrumented fusion L4-S1. The procedure and complications were explained and the patient was consented. Procedure: The patient was brought to the operating room and endotracheally intubated. The patient was positioned on the Earl spine table in a modified prone position for ease of access from the left side.. 2C arms were installed for fluoroscopy. Prepping and draping was done followed by timeout. The landmarks, including spinal processes, transverse processes, disc space, endplates and pedicles are identified and marked. The following steps are taken for each specified level: L 4 5 level: Cage size 9 mm high and 33 mm long titanium . L5-S1 level: Cage size 9 mm high and 27 mm long titanium The patient was turned using the rotation of the surgical table so a near direct anterior lateral approach to the lumbar spine could be achieved. A small incision was then made superior to the mid iliac crest and then using biplanar fluoroscopy visualization, under electrophysiological monitoring and stimulation, we introduced an electrophysiological probe through the retroperitoneal space into the desired disc anterior to the transverse process and then passed it into the disc space after finding a silent window. The sleeve was retained and the probe was removed, then the K wire was passed sequentially into the disc space. A dilating tube was then passed along the same route. Fol lowing this, a working channel, a working channel was then passed sequentially into the disc space. The working channel was manually held in position while a series of disc cleaning tools were passed through the channel to remove the affected disc under clear and direct biplanar fluoroscopic visualization, decompress the nerve roots and equal corticated vertebral endplates at this segment. Arthrodesis of the intervertebral space via an anterior retroperitoneal exposure was achieved through Kambin's Newborn and lateral extraforaminal space. Allograft was added into the anterior disc space. The working channel was then removed. A titanium interbody cage tightly packed with allograft was then inserted into the midportion of the intervertebral disc space over a K-wire under biplanar fluoroscopic visualization and intraoperative neuro monitoring. The inter pedicular and intradiscal space was significantly enlarged and disc height was restored to worked normal anatomy there for releasing pressure on the nerve roots visual largely the spinal canal and lateral recess as well as foramen were bilateral decompressed and all bones were confined to the borders of the disc space . The following steps are then taken for each specified level: L4 and L5 levels: Bilateral L4 and L5 screws with a diameter of 6.5 x 45 mm. L5-S1 level: Bilateral S1 screws with a diameter of 6.5 x 40 mm. The posterolateral fusion is initiated after the patient is rotated to a true prone position. The entry point to the pedicle is identified in the AP and lateral views and then the skin incision is injected with local anesthetic. We entered the pedicle with the pediguard tap after which a K-wire was introduced into the vertebral body. Additionally, I used a small periosteal decorticator along the screws to refresh the surface of the bone and facet and I put some amount of allograft for additional stability for the posterolateral fusion. Over the K-wire we insert pedicle screws bilaterally. After the screws were placed, we put the diaz in place and under fluoroscopic imaging, we locked the diaz in place and removed the screw tops and then each incision has been closed with 0 Vicryl for the fascia and a 3-0 Vicryl for the subdermal layer. Steri- Strips were used to approximate the incisions. An OpSite with Tegaderm was used to cover the incision. Final x-rays and AP and lateral projection showed good position of the interbody device and instrumentation. All sponge and needle counts were correct. The patient was extubated and transported in a stable condition to the recovery room. 2-0 Vicryl This procedure was done with the aid of a physician assistant plant controller as a qualified resident was not available. Anesthesia: General Estimated Blood Loss (ml): 130 mL Specimen: None Duration of Surgery: 1 hour and 15 minutes Postoperative Plan: Admit to inpatient
[2024-01-30 11:22] LABS: Glucose, Whole Blood 197 mg/dL (60-115)
[2024-01-30 11:53] LABS: Anion Gap 16 (12-20); Carbon Dioxide 21 mmol/L (22-29); Chloride 108 mmol/L (96-108); Potassium 3.8 mmol/L (3.3-5.1); Sodium 141 mmol/L (135-145)
[2024-01-30 12:03] LABS: Troponin-I High Sensitivity 18.9 ng/L (<3.5-17.0)
[2024-01-30 12:58] LABS: Glucose, Whole Blood 165 mg/dL (60-115)
--- NOTE | 2024-01-30 13:00 | PC.NURSE ---
Patient arrived to floor is hospital bed at 1240. A&Ox4. Neuro's checked and intact. Lung sounds clear. Large dressing to lumbar area- C/D/I. Patient requesting to sleep. VSS with POC of 165.
[2024-01-30] MEDS: 0.9 % Sodium Chloride 1,000 ML 75 ML IVCONT (13:09)
[2024-01-30] MEDS: ceFAZolin Sodium/Dextrose,Iso 2 GM/50 ML PIGGYBACK IV (13:14)
[2024-01-30] MEDS: Acetaminophen 325 MG TABLET 975 MG PO ×2 (15:38→21:14)
[2024-01-30] MEDS: hydrOXYzine HCL 25 MG TABLET PO ×2 (15:38→21:14)
[2024-01-30] MEDS: oxyCODONE HCl Immed Release 5 MG TABLET 10 MG PO (15:41)
[2024-01-30 20:28] LABS: Glucose, Whole Blood 119 mg/dL (60-115)
[2024-01-30] MEDS: Mirtazapine 15 MG TABLET 45 MG PO (21:14)
[2024-01-30] MEDS: Docusate Sodium 100 MG CAPSULE PO (21:14)
[2024-01-30] MEDS: Atorvastatin Calcium 20 MG TABLET PO (21:14)
[2024-01-31] MEDS: oxyCODONE HCl Immed Release 5 MG TABLET 10 MG PO ×2 (02:12→07:26)
[2024-01-31 03:27] VITALS: BP 113/65; PULSE 93; RESP 18; TEMP 36.4; O2SAT 95
[2024-01-31] MEDS: Acetaminophen 325 MG TABLET 975 MG PO ×2 (03:57→10:55)
--- NOTE | 2024-01-31 07:26 | PM.DS ---
DS: Providers Provider Date of Service: 01/31/24 Date of admission: 01/30/24 06:13 Primary care physician: MAKENNA Quiroz DS: Summary Time Attestation Discharge Coordination Time (in mins): 20 Quality: Safe Use of Opioids Does Pt have an Active Cancer Diagnosis on the Problem List?: No Quality: Stroke Does the patient have a stroke diagnosis?: No Physical Exam Vital Signs: Vital Signs: Last Vital Signs Temp 97.6 F 01/31/24 03:27 Pulse 93 01/31/24 03:27 Resp 18 01/31/24 03:27 BP 113/65 01/31/24 03:27 Pulse Ox 95 01/31/24 03:27 O2 Del Method Room Air 01/31/24 03:27 O2 Flow Rate 2 01/30/24 11:40 BMI result Body Mass Index 26.5 DS: Data Data Completed and Pending Labs on day of discharge: Laboratory Results - last 24 hr 01/30/24 01/30/24 01/30/24 10:45 11:39 12:54 Sodium 141 Potassium 3.8 Chloride 108 Carbon Dioxide 21 L Anion Gap 16 POC Glucose 197 H 165 H Troponin I High Sens 18.9 H 01/30/24 20:23 Sodium Potassium Chloride Carbon Dioxide Anion Gap POC Glucose 119 H Troponin I High Sens Discharge Plan Discharge Anticipated Discharge Date/Time: 01/31/24 07:33 Patient Disposition: Home, Self-Care Discharge Diagnosis: s/p L4-S1 Transkambin lumbar fusion Referrals: Sarah Wall PA [Primary Care Provider] - 1 Week Discharge Medications: New oxycodone 5 mg tablet 5 mg PO Q6H PRN (Reason: severe pain (scale score 7-10)) Qty: 30 0RF Rx Instructions: Partial Fill upon patient request. Continued metformin 500 mg tablet 500 mg PO DAILY allopurinol 100 mg tablet 100 mg PO DAILY albuterol sulfate [Ventolin HFA] 90 mcg/actuation HFA aerosol inhaler 90 mcg inhalation Q4H PRN (Reason: Shortness Of Breath Or Wheezing) paroxetine HCl 40 mg tablet 40 mg PO DAILY mirtazapine 45 mg tablet 45 mg PO BEDTIME atorvastatin 20 mg tablet 20 mg PO BEDTIME hydroxyzine HCl 25 mg tablet 25 mg PO TID lisinopril-hydrochlorothiazide 20-12.5 mg tablet 1 tab PO DAILY gabapentin 100 mg capsule 100 mg PO BEDTIME Held lidocaine 5 % adhesive patch,medicated 2 patch topical DAILY PRN (Reason: pain) Hold Instructions: Resume on 01/31/24. Discharge Orders: Discharge Order (Routine); Ordered 01/31/24 Ordered By: Lenin Tavares Diet: Advance to usual diet Activity on Discharge: As tolerated Stand Alone Forms: Patient Portal Discharge page Print Language: [place] Islander Activity Restrictions/Additional Instructions: After your spinal surgery we ask you to observe the following restrictions/guidelines: Activity: With lumbar fusion surgery it is normal to have days in the first couple of weeks where you have increased leg pain. This usually lasts 1-2 days and self resolves with the continuation of medication. Attempt to stay mobile and continue activity as tolerated. It is normal to feel some discomfort as you increase your activity, but that will improve with time. We ask you avoid heavy lifting or activities that cause pain. As a general rule, 8lbs is a safe limit for lifting right after surgery. Walk as much as you feel comfortable but not to exhaustion. You will feel extra tired the first few days after surgery. Stay well hydrated. It is OK to walk up and down stairs You may return to driving when you are off narcotics (such as vicodin, oxycodone, dilaudid, etc), and you are back to normal functional capacity. If you have any concerns please check with office before driving. Return to work is specific to each patient and each surgery, so please speak with your doctor/PA at first follow up. Please bring paperwork such as FMLA at that time if you need it filled out. Medications: It is recommended that you take Tylenol 500 mg every 4 hours for the 1st week postoperatively, ?alongside ibuprofen 600 mg every 8 hours. We will give you a short supply of narcotics after surgery (usually one weeks worth). ??Please use this for breakthrough pain that is refractory to the Tylenol / ibuprofen. If you need more please call the office but do not use more than prescribed. You will need to give our office 48 hours notice if you need narcotics refilled and we do not fill narcotics on weekends or evenings. If you are on a narcotic, it is a good idea to take a stool softener such as colace or senna to avoid constipation If you take blood thinner such as aspirin, Plavix, Coumadin, Effient, Eliquis etc for conditions such as Afib, DVT, Pulmonary embolus, coronary disease, stents etc please speak with your surgeon about specific details as to when you can resume these medications. You can resume NSAIDs on post op day 1 (eg: Motrin, Naproxen, etc). Follow up: Please call the office, , after surgery to arrange a 3 week follow up for wound check. Wound Care: You may remove your dressing on the first day after surgery. ?You may ?leave open to air. Please do not remove the steri strips underneath. they will fall off on their own in one week. IT IS NORMAL FOR THE WOUND TO OOZE OR BE BLOODY FOR A FEW DAYS AFTER SURGERY. ?IF THIS HAPPENS JUST PLACE NEW DRESSING OVER IT TO AVOID STAINING CLOTHES. You may shower on post op day # 1 We ask that you do not let the water soak the wound. If it does get wet, just towel dry lightly. Please do not scrub your incision or place any type of chemical/ointment on the wound. No tub baths, pools or jacuzzis for one month. If you have any leaking or redness from your wound, or fevers, please call office Care Plan Goals: Return to normal activity as tolerated Health Concerns: None Plan of Treatment: Follow-up in clinic in 2-3 weeks Assessment: POD: 1 Procedure: L4-S1 Transkambin Lumbar Fusion Patient reports she is up walking around is otherwise doing well. She feels her symptoms are much better than pre-operatively. She still reports mild pain in her low back (left side), with good relief with current pain medication. She is OOB voiding well, tolerating diet. Afebrile, vital signs stable. Full strength 5/5 LE. Ambulates with assistance of walker. Back dressings have no staining, no signs of hematoma. No active sanguineous drainage. Area is dry. Plan: Patient meets criteria to be medically discharged home. She was seen at bedside with Dr. Aguilar. Lenin Aguilar MD,PhD [facility]
[2024-01-31 07:30] VITALS: BP 134/67; PULSE 82; RESP 20; O2SAT 95
[2024-01-31 07:44] VITALS: BP 134/67; PULSE 82; O2SAT 95
[2024-01-31 07:58] VITALS: TEMP 36.6
[2024-01-31] MEDS: Docusate Sodium 100 MG CAPSULE PO (08:27)
[2024-01-31] MEDS: lisinopriL 20 MG, hydroCHLOROthiazide 12.5 MG PO (08:27)
[2024-01-31] MEDS: allopurinoL 100 MG TABLET PO (08:27)
[2024-01-31] MEDS: PARoxetine HCL 40 MG TABLET PO (08:30)
[2024-01-31] MEDS: metFORMIN HCl 500 MG TABLET PO (08:30)
[2024-01-31] MEDS: hydrOXYzine HCL 25 MG TABLET PO (08:30)
[2024-01-31] MEDS: Gabapentin 300 MG CAPSULE PO (08:30)
--- NOTE | 2024-01-31 09:15 | MHC.CM.PN ---
pt dcd home self care
--- NOTE | 2024-01-31 10:15 | HO.POSTANES ---
Post Anesthesia Evaluation Post Anesthesia Evaluation Date of Service: 01/30/24 Vital Signs: Vital Signs Temp Pulse Resp BP Pulse Ox O2 Del Method 01/31/24 07:58 97.8 F 01/31/24 07:44 82 134/67 95 01/31/24 07:30 82 20 134/67 95 Room Air 01/31/24 03:27 97.6 F 93 18 113/65 95 Room Air 01/30/24 23:17 98.0 F 88 18 140/72 H 96 Room Air Anesthesia: General Endotracheal-GETA Mental Status: Awake Pain Control: Satisfactory Nausea/Vomiting: None Hydration: Adequate Anesthesia-Related Issues: No Anes. Related Issues
[2024-01-31 10:42] LABS: Creatinine Clr Calc Pharmacy 42.1; Estimated Glomerular Filt Rate 45
== END 2024-01-31 12:56 | disposition home or self-care (01) | DRG 460 ==
LOC: HO.SSSA 06:20 → HO.S3 10:36
PROVIDERS: Anesthesiology; Neurological Surgery; Physician Assistant; Admitting Provider Physician Assistant; PCP Physician Assistant; Visit Provider Physician Assistant
PROC: 0SG00A0 Fusion of Lumbar Vertebral Joint with Interbody Fusion Device, Anterior Approach, Anterior Column, Open Approach (ICD-10-PCS; principal; 2024-01-30 07:30)
DX: M51.17 Intervertebral disc disorders with radiculopathy, lumbosacral region (principal); M48.062 Spinal stenosis, lumbar region with neurogenic claudication; M51.16 Intervertebral disc disorders with radiculopathy, lumbar region; F17.210 Nicotine dependence, cigarettes, uncomplicated; Z71.6 Tobacco abuse counseling; Z79.84 Long term (current) use of oral hypoglycemic drugs; Z79.899 Other long term (current) drug therapy
CPT/HCPCS: 36415; 80051; 82565; 82947; 84484; 86850; 86900; 86901; 93005; 97162; C1713; C1889; C9290; J0131; J0665; J0690; J1170; J2405; J2704; J3010; L8699

== ENCOUNTER 2024-01-30 06:13 | Outpatient (BNV) | payer OTHER, SELFPAY | END 2024-01-30 11:10 | PROVIDERS: Admitting Provider Physician Assistant; PCP Physician Assistant; Visit Provider Internal Medicine Cardiovascular Disease | DX: M48.062 Spinal stenosis, lumbar region with neurogenic claudication (principal) | CPT/HCPCS: 93010 ==

== ENCOUNTER → 2024-01-30 06:13 | Outpatient (BNV) | payer OTHER, SELFPAY | PROVIDERS: Admitting Provider Physician Assistant; PCP Physician Assistant; Visit Provider Neurological Surgery | DX: M51.36 Other intervertebral disc degeneration, lumbar region (principal); M54.16 Radiculopathy, lumbar region | CPT/HCPCS: 20930; 22558; 22585; 22612; 22614; 22840; 22853; 63056; 63057; 99499 ==

== ENCOUNTER 2024-02-20 13:35 | Outpatient (AMB) | payer OTHER, SELFPAY ==
--- NOTE | 2024-02-20 12:53 | A.SPINEOV_ITS ---
Intake Visit Reasons: 1st post op Intake Note: Ms. Pedroza is here today for her 1st post-op visit. Electrical Systems Design Engineer Required: No Allergies No Known Allergies Allergy (Verified 12/19/23 10:26) Assessment & Plan Assessment & Plan (1) S/P spinal fusion: Code(s): Z98.1 - Arthrodesis status Category: Surgical Plan Procedure: L4-5, L5-S1 OLLIF Chana comes in today for her 1st postoperative visit. To recap she was initially evaluated in our office for low back pain with radiation into her left lower extremity. She reports that her pain is much better than it was prior to surgery. She is overall very satisfied with the surgery. He still has some pain with ambulation and difficulty completing her ADLs throughout the day, but is overall doing very well. She did request that we partially refilled her oxycodone. We discussed the postoperative healing course, and she also requested a letter so that she may continue physical therapy for neck/shoulder which she was doing prior to surgery. No new neurological deficits. Patient is able to ambulate well, rises from a seated position without difficulty. Incision sites are closed, well healing, with no signs of drainage. I partially refilled the patient's oxycodone, and provided her with a letter for physical therapy recommending they do not do any significant strength training or spine stretching. We will follow-up with the patient in 6 weeks for their 2nd postoperative visit. At that time we will get x-rays to review with the patient. Lenin Aguilar MD,PhD [facility] Medications: Changed From oxycodone Partial Fill upon patient request. 5 mg PO Q6H PRN 30 tabs 0RF severe pain (scale score 7-10) To oxycodone Partial Fill upon patient request. 5 mg PO BID PRN 14 tabs 0RF severe pain (scale score 7-10) Coding Level of Care Code Global (16866) Diagnoses S/P spinal fusion Z98.1
== END 2024-02-20 14:04 | disposition home or self-care (01) ==
PROVIDERS: PCP Physician Assistant; Visit Provider Physician Assistant
DX: Z98.1 Arthrodesis status (principal)
CPT/HCPCS: 99024

== ENCOUNTER → 2024-02-20 13:35 | Outpatient (BNVA) | payer OTHER, SELFPAY | PROVIDERS: PCP Physician Assistant; Visit Provider Physician Assistant | DX: Z48.89 Encounter for other specified surgical aftercare (principal); F11.20 Opioid dependence, uncomplicated; Z98.1 Arthrodesis status | CPT/HCPCS: 99212 ==

== ENCOUNTER 2024-03-13 08:26 | Outpatient (REF) | payer OTHER, SELFPAY ==
--- NOTE | ~2024-03-13 | XR_ITS ---
EXAMINATION: XR LUMBOSACRAL SPINE CLINICAL INFORMATION: Z98.1 - Arthrodesis status COMPARISON: No prior radiographs. MR lumbar 192. TECHNIQUE: 4 views of the lumbar spine, inclusive of flexion and extension views, were obtained. FINDINGS: No scoliosis. No compression deformities, fractures, or focal bony abnormalities. Normal lordosis. There has been a translaminar interbody fusion of L4-S1 with associated discectomy and disc graft placement. Dorsal construct transpedicular screws and posterior connecting rods spanning L4, L5, and S1, without definite periscrew lucencies or complications evident. Hardware is intact. Stable sclerosis of the endplates at these surgical levels. Neutral lateral view demonstrates anatomic alignment without subluxations. Flexion and extension view demonstrate no evidence of developing subluxations. XR/XR lumbar spine 4V min IMPRESSION: 1. Intact TLIF L4-S1 without complication. No acute findings of the lumbar spine. 2. No evidence of instability or subluxation on flexion-extension views. Electronically signed by: Klaus Espino MD 05/22/2024 02:15 PM AWILDA
== END 2024-03-13 08:27 | disposition home or self-care (01) ==
LOC: HO.XRAY 08:26
PROVIDERS: PCP Physician Assistant; Visit Provider Physician Assistant
DX: Z98.1 Arthrodesis status (principal)
CPT/HCPCS: 72110

== ENCOUNTER → 2024-03-13 08:29 | Outpatient (BNV) | payer OTHER, SELFPAY | PROVIDERS: PCP Physician Assistant; Visit Provider Radiology Diagnostic Radiology | DX: Z98.1 Arthrodesis status (principal) | CPT/HCPCS: 72110 ==

== ENCOUNTER 2024-04-02 13:27 | Outpatient (AMB) | payer OTHER, SELFPAY ==
--- NOTE | 2024-04-02 13:33 | HO.SPINEOV ---
Intake Visit Reasons: 2nd post op with xrays Intake Note: Ms. Pedroza is here today for her 2nd post-op. Crayon Sawyer Required: Yes Crayon Sawyer Name: [id number]\Tablet Allergies No Known Allergies Allergy (Verified 04/02/24 13:35) Assessment & Plan Assessment & Plan (1) S/P spinal fusion: Code(s): Z98.1 - Arthrodesis status Category: Surgical Plan Procedure: L4-5, L5-S1 TKLIF Iris comes in today for her 2nd postoperative visit. She reports that overall she is doing much better since her surgery. Unfortunately she does still report some pain in her left lower extremity, but feels it is overall much better than it was prior to surgery. Her low back pain has significantly improved. She is ambulating well and reports she is able to complete her ADLs without issue. I reviewed her lumbar spine x-rays during this visit which shows stable placement of the surgical construct with no obvious changes from fluoroscopy. No new neurological deficits. Patient is able to ambulate well, rises from a seated position without difficulty. Posterior incision sites are closed, well healing, with no signs of drainage. We will follow-up with the patient in 1 year for a subsequent evaluation. I will get a CT scan to be completed about 10 months after her surgery to evaluate for fusion progress. Lenin Aguilar MD,PhD [facility] Orders: Orders CT lumbar spine wo IV con Today Z98.1 - Arthrodesis status Coding Level of Care Code Global (53320) Diagnoses S/P spinal fusion Z98.1
== END 2024-04-02 13:44 | disposition home or self-care (01) ==
PROVIDERS: PCP Physician Assistant; Visit Provider Physician Assistant
DX: Z98.1 Arthrodesis status (principal)
CPT/HCPCS: 99024

== ENCOUNTER → 2024-04-02 13:27 | Outpatient (BNVA) | payer OTHER, SELFPAY | PROVIDERS: PCP Physician Assistant; Visit Provider Physician Assistant | DX: Z98.1 Arthrodesis status (principal) | CPT/HCPCS: 99212 ==

== ENCOUNTER 2024-06-18 11:46 | Outpatient (AMB) | payer OTHER, SELFPAY ==
--- NOTE | 2024-06-18 11:46 | A.OFFVIS_ITS ---
Vital Signs 06/18/24 11:47 Height 5 ft 2 in Weight 155 lb BMI 28.3 Intake Visit Reasons: Knee pain after falling (New Problem) Quality Assurance Lab Technician Required: Yes Quality Assurance Lab Technician Language: Funnel Coater Services: Quality Assurance Lab Technician Present Quality Assurance Lab Technician Name: Quality Assurance Lab Technician # [id number] Accompanied by: Self / Same As Patient Allergies No Known Allergies Allergy (Verified 06/18/24 11:48) HPI Comments Details: Patient presents today via telehealth encounter to address acute right knee pain. She notified our office on 06/13/24 with new onset of right knee pain status post falling. Patient denies today that she fell and reports she woke up with anterior right knee pain and swelling without any redness or bruising last week. Reports difficulty walking and climbing stairs. She has been elevating her right leg, taking Tylenol and applying ice packs. Patient denies any back pain or left knee or left leg pain. She underwent L4-5, L5-S1 TKLIF on 01/30/[address] Aguilar with most recent follow up in March. Patient denies any fever or chills, cough, dizziness, infection, shortness of breath, chest pain, burning, numbness or tingling, weakness, instability, locking or popping knee sensations, bladder or bowel dysfunction or saddle anesthesia. Past Procedures: 11/28/23: Bilateral L4-L5 TFESI-100% ongoing pain relief PRIOR: Patient presents today for follow up for worsening lower back pain with left s ided radiculopathy. She was initially seen in our office in August 2022. Patient denies any recent trauma, injury, or falls. She completed 3 sessions of physical therapy at [facility] and had to discontinue due to increase pain. Pain increases with walking, prolonged sitting or standing or forward flexion, bending and extension. She avoids NSAIDs due to kidney disease and has been modifying her activities and applying lidocaine patches with minimal relief. Patient has severe L4-L5 and moderate L5-S1 degenerative changes per last lumbar xray imaging. We will proceed with obtaining lumbar spine MRI to assess for neural integrity and compression as well as degenerative changes on the endplates with any Modic changes. Patient denies any fever, weight loss, abdominal or groin pain, bladder or bowel dysfunction or saddle anesthesia. Patient reports intermittent weakness in her left lower extremity especially with prolonged walking. PRIOR: Patient is a pleasant 62 years old female presents with one year of lower back pain without any inciting events. Denies any injury, trauma, or falls. Her back pain is axial and also radiates to her left lower extremity posteriorly with numbness and tingling in her left calf. Pain is described as constant hot burning, scalding, searing, tingling, stinging, dull, sore, hurting, aching, and heavy. Pain is increased with walking, sitting, standing, changing positions, and weather changes. Her worst pain is upon awakening in the morning with significant stiffness and gets better as the day goes on with mild activity. Pain is rated at 9/10. She denies any previous physical therapy, massage, chiropractic manipulation, or aqua therapy. She has been treating her pain with Tylenol, diclofenac gel, heat therapy and rest. She cannot take NSAIDs due to CKD stage 3a. Patient reports she is followed by nephrology and most recent labwork did not indicate any therapy changes. Patient denies any fever, chills, weight loss, bladder or bowel incontinence, or saddle anesthesia. Patient is a smokes 6-7 cigarettes per day. She reports she quit smoking 6 years and restarted smoking due to stress in her life and not ready to quit smoking at this time. Patient is undergoing low CT dose lung scan soon. She drinks 3 cups of coffee a day. [facility] Medical History Family history of anesthesia complication Diabetes Panic attacks Murmur Anxiety Asthma Hyperlipidemia Stage 3a chronic kidney disease Hypertension Right lumbar radiculopathy Lumbar disc disease Surgical History H/O colonoscopy Hx of hysterectomy History of bladder suspension procedure Social History Household Members: None Housing: Condominium Are you a primary care analyst to a significant other at home: No Do you presently have visiting nurse or other home services: Yes ([employer] Patient Tobacco Use Status: Current everyday Tobacco user Tobacco use type: Cigarette Cigarettes Per Day: 6 Years Smoked: 40 e-Cigarette/Vaping Use: Never Used Substance Use Type: Marijuana Review of Systems Const All systems reviewed & are unremarkable except as noted in HPI and below ENT Reports Normal hearing present Neuro Reports Normal hearing present and Denies confusion Psych Denies confusion Physical Exam Vital Signs: BMI result Body Mass Index 28.3 Const General: cooperative, alert and awake; No confusion Orientation/consciousness: patient oriented x3 and No confusion Resp Effort & Inspection: able to speak in complete sentences, no audible wheezes and no cough Neuro General: patient oriented x3 and No confusion Cranial nerves: Yes Normal hearing present Cognition (Neuro): normal cognition Psych Mental Status: mental status grossly normal Speech and movement: Clear speech present Affect: normal affect Attitude: cooperative Thought process: Normal thought process present Thought content: Normal thought content present and No Depressive thoughts present Insight: Good insight present (Psych) Judgement: Good judgement present (Psych) Telehealth Telehealth Telehealth Platform: Telephone Location of provider rendering services: practice address Location of patient: address on file Patient Identification confirmed using: Name, : Yes Telehealth method: voice only Patient verbally consented to treatment: Yes Patient verbally consented to billing insurance company: Yes Patient informed of any privacy concerns related to visit: Yes Minutes spent on Phone/Video with Pt.: 16 Results Reviewed Results Reviewed: No imaging results are available for review. Assessment & Plan Assessment & Plan (1) Right knee pain: Code(s): M25.561 - Pain in right knee Category: Medical (2) Chronic pain syndrome: Code(s): G89.4 - Chronic pain syndrome Category: Medical Plan Patient presented today via telehealth encounter with acute right anterior knee pain. She is encouraged to continue elevation, rest, ice pack. Patient avoids NSAIDs due to CKD. We will obtain knee x-ray at her earliest convenience and follow-up with patient with results. We discussed formal physical therapy, which patient would like to hold off until xray results. Script provided for lidocaine patches. Patient is aware to call if pain worsens or if she develops any red flag symptoms to seek emergency care. All questions and concerns have been answered and patient agreed with the treatment plan. Follow-up for x-ray results and sooner as needed. I hereby testify that I spent 16 minutes in conversation with this patient as well as with planning and coordinating care for this patient and organizing this note. Orders: Orders XR knee RT 3V Today M25.561 - Pain in right knee Medications: New lidocaine 5% 1 patch topical DAILY 30 days 30 ea 0RF pain M25.561 - Pain in right knee Coding Level of Care Code Tele Est Pt Level 4 (71104) Complex EM visit Add On G2211 Diagnoses Right knee pain M25.561 Chronic pain syndrome G89.4
[2024-06-18 11:47] VITALS: BMI 28.3
== END 2024-06-18 11:56 | disposition home or self-care (01) ==
LOC: HO.PMC 11:46
PROVIDERS: PCP Physician Assistant; Visit Provider Nurse Practitioner Family
DX: M25.561 Pain in right knee (principal); G89.4 Chronic pain syndrome
CPT/HCPCS: 99442

== ENCOUNTER → 2024-06-18 11:46 | Outpatient (BNVA) | payer OTHER, SELFPAY | PROVIDERS: PCP Physician Assistant; Visit Provider Nurse Practitioner Family ==

== ENCOUNTER 2024-06-20 09:19 | Outpatient (REF) | payer OTHER, SELFPAY | END 2024-06-20 09:20 | disposition home or self-care (01) | LOC: HO.XRAY 09:19 | PROVIDERS: PCP Physician Assistant; Visit Provider Nurse Practitioner Family | DX: M25.561 Pain in right knee (principal) | CPT/HCPCS: 73562 ==

== ENCOUNTER 2025-03-25 07:35 | Outpatient (REF) | payer OTHER, SELFPAY ==
--- NOTE | ~2025-03-25 | CT_ITS ---
CLINICAL HISTORY: Z98.1 - Arthrodesis status CT lumbar spine without contrast Comparison: 03/13/2024 Findings: No acute fracture or dislocation. Posterior alignment is normal. Moderate lower degenerative change. L4-S1 posterior fusion hardware intact. Impression: No acute processes This document has been electronically signed by: Suresh Thomas MD on 03/25/2025 20:34:43
--- OUTSIDE RECORDS SUMMARY | 2025-03-25 07:41 | XMS_ITS | Clinical Summary ---
Author Organization [facility] Address [address] [place] [address] Phone Care Team Providers Care Cinder Man Name Role Phone David Wall Primary Care Provider [phone] Allergies No known active allergies Medications benzonatate (TESSALON) 100 mg capsule Take 1 capsule (100 mg total) by mouth 3 times daily as needed. 07/24/19 25 Active atorvastatin (LIPITOR) 20 mg tablet Take 1 tablet (20 mg total) by mouth at bedtime. at bedtime Active acetaminophen (TYLENOL 8 HOUR) 650 mg 8 hr tablet Take 1 tablet (650 mg total) by mouth. Active allopurinoL (ZYLOPRIM) 100 mg tablet Take 1 tablet (100 mg total) by mouth daily. 03/29/20 24 Active metFORMIN (GLUCOPHAGE) 500 mg tablet Take 1 tablet (500 mg total) by mouth 1 (one) time each day with breakfast. 03/29/20 24 Active aspirin 81 mg EC tablet Take 1 tablet (81 mg total) by mouth 1 (one) time. 10/02/19 21 Active PARoxetine (PAXIL) 40 mg tablet Take 1 tablet (40 mg total) by mouth 1 (one) time each day. 08/29/19 25 Active mirtazapine (REMERON) 45 mg tablet Take 1 tablet (45 mg total) by mouth at bedtime. at bedtime. 08/25/19 25 Active albuterol HFA (ProAir HFA) 90 mcg/actuation inhaler Inhale 2 puffs by mouth 4 (four) times a day. 09/18/19 14 Active lisinopril-hydro CHLOROthiazide (PRINZIDE,ZESTOR ETIC) 20-12.5 mg per tablet Take 1 tablet by mouth 1 (one) time each day. 08/25/19 19 Active silver sulfADIAZINE (Silvadene) 1 % creamIndications :Cellulitis of left toe Apply topically 1 (one) time each day. 50 g 09/04/19 25 026 Active cephalexin (KEFLEX) 500 mg capsule Take 1 capsule (500 mg total) by mouth 4 (four) times a day. for 7 days 08/29/19 25 025 Discontinu ed(Stop Taking at Discharge) mupirocin (BACTROBAN) 2 % ointment Apply 2 Applications topically 3 (three) times a day. 08/29/19 25 025 Discontinu ed(Stop Taking at Discharge) levoFLOXacin (LEVAQUIN) 250 mg tablet Take 1 tablet (250 mg total) by mouth daily. 01/19/20 24 025 Discontinu ed(Stop Taking at Discharge) cefdinir (OMNICEF) 300 mg capsule Take 1 capsule (300 mg total) by mouth 2 (two) times a day for 5 days. 10 each 03/07/20 25 025 Active Problems Problem Noted Date Diagnosed Date Pyelonephritis 03/04/2025 Hypertension 09/03/2024 Lumbar disc disease 01/02/2024 Diabetes mellitus type 2, un complicated ([facility] V24, [facility] V28) 10/10/2023 Stage 3a chronic kidney disease ([facility] V24, [facility] V28) 07/06/2022 Overview (09/03/2024): 2021 CKD stage III Non-oliguric In the setting of hypertension Renal U/S 2018 Overall likely hypertensive nephrosclerosis. Positive colorectal cancer screening using Colog uard test 05/24/2022 Microhematuria 08/22/2019 Microalbuminuria 08/09/2018 Post herpetic neuralgia 03/27/2018 Mild hyperlipidemia 01/03/2018 Pulmonary nodule 06/01/2017 Generalized osteoarthrosis 07/27/2016 Cervicalgia 07/27/2016 Overview (09/03/2024): Result type: Pain Management Note Office Result date: December 26, 2017 14:30 EDT Result status: Auth (Verified) Result title: Interventional Pain Management Note Performed by: Leonardo Plummer MD on December 26, 2017 12:44 EDT Verified by: Leonardo Plummer MD on December 26, 2017 15:23 EDT Encounter info: [id number], PAIN MGMT, Discharged OutPatient, 12/26/2017 - 12/26/2017 Interventional Pain Management Note Patient: MEDHAT PEDROZA Age: 57 years Sex: Female : 1960 Associated Diagnoses: None Author: Leonardo Plummer MD Visit Information Service Date: 12/26/2017. PCP: David Yost. Insurance Medicaid. Medicare. Accompanied: by patrol mother Terell BAUMAN . Chief Complaint: neck pain. Pain location/radiation: . Pain described as: ache, sharp. Pain is: constant. Associated with: neck movements. Intensity: 8 /10 best in 24hrs, 8 /10 worst in 24hrs, 8 /10 current pain level. Relieving factors: rest, heat, medication. Patient has tried the following treatment for pain: physical therapy, anti-inflammatory medication, narcotics. Mrs. Pedroza is a 57 y.o. female referred by [facility] for neck and shoulder pain. Pt states pain is like a pulling or tearing. Makes cracking sounds. 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 Pt states she has some weakness in her left hand and drops things sometimes. Intensity, radiation, quality, exacerbating factors and relieving factors as above. INTERVENTIONS: Medications: meloxicam, NSAIDs, no membrane stabilizers Injections: none Surgery: none Physical Therapy: Last year did PT for 3 months. Other: heat helps at the moment, no menthol creams trial. PSYCHOSOCIAL: Psych Hx: panic disorder disability Surgical History Procedure/Surgical Profile hysterectomy. bladder stimulator. bladder stimulator removal Past Medical History Panic Disorder Problem List All Problems HTN - Hypertension / SNOMED CT 5422661526 / Confirmed Well female adult / SNOMED CT 756623444 / Confirmed Allergies Allergies reviewed. Medication Reconciliation completed (Selected) Documented Medications Documented PARoxetine 20 mg oral tablet: 20 mg, 1, tablet, By Mouth, Daily, Refills 0, Maintenance, 05/07/18 9:16:27 EDT ProAir HFA: 2 puffs, Inhalation, 4 times a day, 0 Refills, Maintenance, 09/17/13 10:56:46 SEROquel 25 mg oral tablet: 25 mg, 1, tablet, By Mouth, 3 times a day, Refills 0, Maintenance, 12/26/17 14:30:45 EDT Vitamin D3: = 50,000 International_Units, By Mouth, Every 7 days, 0 Refills, Maintenance, 10/30/17 9:17:06 EDT hydrochlorothiazide-lisinopril 12.5 mg-20 mg oral tablet: 1 tablet, By Mouth, Daily, 0 Refills, Maintenance, 09/17/13 10:55:50 meloxicam 15 mg oral tablet: 1 tablet = 15 mg, By Mouth, Daily, 0 Refills, Maintenance, 10/30/17 9:16:47 EDT mirtazapine 15 mg oral tablet: TK 1 T PO AT BEDTIME Family History Family History Profile Family history reviewed. Social History Tobacco use: 1/4 pk/day. Social History: ETOH, disabled, lives with daughter, grandson . Tobacco Exposure. Drug Use: History of drug use problem Marijuana. Review of Systems Independently, patient able to: Ambulate, Bathe, Care for Children, Care for Family Members, Dress, Shop, Toilet. Activity: Limited by pain. Sleep: Undisturbed. ENT: denies problems. Eyes: denies problems. Cardiovascular: hypercholesterolemia. Respiratory: asthma. Gastrointestinal: denies problems. Genitourinary: hx incontinence, receives botox injections. Endocrine: denies problems. Musculoskeletal: arthritis. Neurologic: denies problems. Psychiatric: Depression. Mood: sometime good, sometimes not . Cancer: No. Coagulopathy: No. Diabetic: No. Glaucoma: No. Immune Disorder: No. Skin Problems: No. Results Review All diagnostic studies obtained since last office visit reviewed. The following remarkable results are noted below. none present Physical Examination Vital Signs Vitals : VITALS 12/26/2017 14:28 EDT Pulse Rate 73 bpm Systolic Blood Pressure 140 mm Hg H Diastolic Blood Pressure 71 mm Hg Mean Arterial Pressure 94 mm Hg . Weight : Weight lb/oz 12/26/2017 14:28 EDT Weight lb/oz 129 lb 10 oz . GENERAL: NAD, Normal Affect, HEENT: NCAT, EOMI, FROM CARDIAC: S1, S2, RRR, No murmurs PULMONARY: CTA b/l, No Rhonchi, Wheezes or Rhales ABDOMEN: NTND, soft VASCULAR: peripheral pulses present and equal bilaterally DERM: no rash, skin lesions or excessive erythema over neck MUSCULOSKELETAL: Strength: slight weakness on lemon grower in left hand. Palpation: focal tenderness over neck, b/l trapezius. Range of Motion: decreased ROM due to tightness NEUROLOGICAL: Sensation: normal sensory exam over bilateral upper extremities Deep tendon reflexes: Present and equal bilaterally, no clonus DIAGNOSTIC TESTS: (-) Spurling (-) Christie (+) Cervical facet loading Assessment DIAGNOSIS Myalgia. Cervical radiculopathy. Mrs. Pedroza is a 57 y.o. female with myofascial pain in her neck. Pt also complaining of weakness in her right hand and which is present on physical exam. Will order MRI for cervical radiculopathy and plan further treatment accordingly. As patient has + TPI, it is reasonable to c/w TPI. Plan Patient is a reasonable candidate for a trial of: Trigger Point injections b/l neck, shoulder, . All risks and benefits of procedure were discussed in detail. Patient was advised to arrange for a ride home after the procedure. The patient was counseled regarding :: the importance of physical therapy, home exercise program. PT short and termite control technician expectations and goals were discussed. Short term goals may not necessarily include pain reduction. Overall goals include increased ROM, flexion, improved posture, strengthening of supporting musculature, improving level of function We recommend learning the proper exercises with PT to achieve these goals and prevent exacerbation from improperly performing physical activity. We discussed the importance to make proper exercise a part of lifestyle for persistent benefits. Patient was advised:: continue routine activity as tolerated, against bedrest lasting 4 days or longer. Counseled against :: smoking. As part of wellness behavior the benefits of weight loss and physical rehab were also stressed. The above plan and management option were discussed at length with the patient. Patient is in agreement with the above and verbalized understanding. Resident Attestation Patient seen by attending ([place]) Report sent to all consultants: David Yost. Panic attack 12/31/2015 Overview (09/03/2024): Stephon Weeks Md [facility] H/O: hysterectomy 12/31/2015 Mild persistent asthma without complication 12/2015 Urinary incontinence 12/31/2015 Chronic pain of left knee 12/31/2015 Essential hypertension, benign 12/31/2015 Encounters Date Type Department Care Team Description 03/04/2025 5:18 AM EDT - 03/07/2025 10:38 AM EDT Hospital Encounter [facility] [address] [place] [phone] Kashmir Mtz MD Nausea and vomiting, unspecified vomiting type (Primary Dx); Bandemia; Stage 3b chronic kidney disease ([facility] V24, [facility] V28); Pyelonephritis Discharge Disposition: Home or Self Care from Last 3 Months Immunizations Immunization Administration Dates Next Due Moderna SARS-CoV-2 COVID-19, mRNA, LNP-S, preservative free 06/17/2021,10/17/2020,09/18/2020 Surgical History Surgery Date Site/Laterality Comments FOOT SURGERY 07/2008 PROCEDURE: HISTORICAL FOOT SURGERY; COMMENT: Dr Yo - right 2nd toe surgery BLADDER SUSPENSION 08/2008 PROCEDURE: HISTORICAL BLADDER SUSPENSION Medical History Medical History Date Comments Asthma DX:Asthma HTN (hypertension) DX:HTN (hyper tension) Arthritis DX:Arthritis Mixed hyperlipidemia DX:Mixed hy perlipidemia Anxiety Diabetes mellitus ([facility] V24, [facility] V28) Social History Tobacco Use Types Packs/Day Years Used Date Smoking Tobacco: Every Day Smokeless Tobacco: Never Alcohol Use Standard Drinks/Week Comments Not Currently 0 (1 standard drink = 0.6 oz pur e alcohol) Interpersonal Safety Answer Date Record ed Physical Abuse Unrecognized value 03/04/2025 Verbal Abuse Unrecognized value 03/04/2025 Comments No Sex and Gender Information Value Date Recorded Sex Assigned at Not on file Legal Sex Female 3:14 PM EST Gender Identity Not on file Sexual Orientation Not on file Obstetrics History Last Filed Vital Signs Vital Sign Reading Time Taken Comments Blood Pressure 133/88 03/07/2025 7:33 AM EDT Pulse 89 03/07/2025 7:33 AM EDT Temperature 36.2 C (97.2 F) 03/07/2025 7:33 AM EDT Respiratory Rate 15 03/07/2025 7:33 AM EDT Oxygen Saturation 99% 03/07/2025 7:33 AM EDT Inhaled Oxygen Concentration - - Weight 63.5 kg (139 lb 15.8 oz) 03/04/2025 9:17 AM EDT Height 157.5 cm (5' 2.01 ) 03/04/2025 9:17 AM ED T Body Mass Index 25.6 03/04/2025 9:17 AM EDT Plan of Treatment Health Maintenance Due Date Last Done Comments Diabetes: Annual Foot Exam 1969 Diabetes: Annual Retina Eye Exam 1969 Cervical Cancer Screening: Pap Smear 1980 RSV Immunization Adult Patients (1 - Risk 60-74 years 1-dose series) 2019 Lung Cancer Screening (Low Dose CT) 05/25/2022 Medicare Annual Wellness Visit 05/25/2022 Osteoporosis Screening (Bone Density Screening) 05/25/2022 Social Influencers of Health Screening 05/25/2022 Depression Screening 06/26/2024 COVID-19 Vaccine ( season) 2025 05/12/2023, 02/07/2022, 06/17/2021, Additional history exists Influenza Vaccine (#1) 2025 , 05/12/2023, 04/19/2022, Additional history exists Colorectal Cancer Screening: FIT-DNA (Cologuard) 05/09/2025 05/09/2022 Diabetes: Blood Sugar Control Test (HGBA1C) 06/04/2025 12/03/2024, 07/10/2024 Breast Cancer Screening 11/28/2025 11/29/19 24, 10/18/2022, 10/13/2021, Additional history exists Diabetes: Annual Urine Albumin-Creatinine Ratio (uACR) 12/03/2025 12/03/2024, 10/04/2023, 09/27/2022, Additional history exists Diabetes: Annual GFR (Glomerular Filtration Rate) 03/06/2026 03/06/2025, 03/05/2025, 03/03/2025, Additional history exists Hypertension/CHF/CAD Annual BMP Blood Test 03/06/2026 03/06/2025, 03/05/2025, 03/03/2025, Additional history exists Falls Risk Assessment 03/07/2026 03/07/2025 DTaP,Tdap,and Td Vaccines (2 - Td or Tdap) 06/01/2027 06/01/2017 Cholesterol Screening (Lipid Panel) 12/03/2029 12/03/2024, 12/03/2024, 07/10/2024, Additional history exists Pneumococcal Vaccine: 50+ Years Completed 07/06/2022, 11/05/2018 Zoster Vaccines Completed 09/27/2022, 11/16/2018 Hepatitis C Screening Completed 12/03/2024 , 04/19/2022, 09/15/2020 HIB Vaccines Aged Out No longer eligi ble based on patient's age to complete this topic HPV Vaccines Aged Out No longer eligi ble based on patient's age to complete this topic Hepatitis A Vaccines Aged Out No long er eligible based on patient's age to complete this topic Hepatitis B Vaccines Aged Out No long er eligible based on patient's age to complete this topic IPV Vaccines Aged Out No longer eligi ble based on patient's age to complete this topic MMR Vaccines Aged Out No longer eligi ble based on patient's age to complete this topic Meningococcal ACWY Vaccine Aged Out N o longer eligible based on patient's age to complete this topic Meningococcal B Vaccine Aged Out No l onger eligible based on patient's age to complete this topic RSV Immunization Patients Under 20 months Aged Out No longer eligible based on patient's age to complete this topic Varicella Vaccines Aged Out No longer eligible based on patient's age to complete this topic Procedures Procedure Name Priority Date/Time Associated Diagnosis Comments POCT GLUCOSE BLOOD Routine 03/07/2025 8: 25 AM EDT POCT GLUCOSE BLOOD Routine 03/06/2025 7: 39 PM EDT POCT GLUCOSE BLOOD Routine 03/06/2025 3: 54 PM EDT POCT GLUCOSE BLOOD Routine 03/06/2025 10 :42 AM EDT POCT GLUCOSE BLOOD Routine 03/06/2025 8: 07 AM EDT MAGNESIUM Routine 03/06/2025 6:15 AM EDT BASIC METABOLIC PANEL Routine 03/06/2025 6:15 AM EDT COMPLETE BLOOD COUNT Routine 03/06/2025 6:15 AM EDT PHOSPHORUS Routine 03/06/2025 6:15 AM EDT POCT GLUCOSE BLOOD Routine 03/05/2025 8: 48 PM EDT POCT GLUCOSE BLOOD Routine 03/05/2025 4: 18 PM EDT POCT GLUCOSE BLOOD Routine 03/05/2025 11 :08 AM EDT POCT GLUCOSE BLOOD Routine 03/05/2025 7: 36 AM EDT MAGNESIUM Routine 03/05/2025 5:31 AM EDT BASIC METABOLIC PANEL Routine 03/05/2025 5:31 AM EDT COMPLETE BLOOD COUNT Routine 03/05/2025 5:31 AM EDT PHOSPHORUS Routine 03/05/2025 5:31 AM EDT POCT GLUCOSE BLOOD Routine 03/04/2025 8: 16 PM EDT POCT GLUCOSE BLOOD Routine 03/04/2025 4: 24 PM EDT POCT GLUCOSE BLOOD Routine 03/04/2025 11 :57 AM EDT POCT GLUCOSE BLOOD Routine 03/04/2025 8: 30 AM EDT LACTATE, WITH REFLEX STAT 03/04/2025 7:43 AM EDT LAVENDER - EDTA Routine 03/04/2025 7:40 AM EDT SST - GOLD Routine 03/04/2025 7:40 AM EDT EXTRA TUBES Routine 03/04/2025 7:40 AM EDT URINALYSIS WITH REFLEX MICROSCOPIC STAT 03/04/2025 6:54 AM EDT URINALYSIS WITH REFLEX MICROSCOPIC STAT 03/04/2025 6:54 AM EDT BLOOD CULTURE PATHOGENS BY PCR Routine 03/04/2025 6:44 AM EDT CULTURE BLOOD STAT 03/04/2025 6:44 AM EDT CULTURE BLOOD STAT 03/04/2025 6:[address] ABDOMEN PELVIS W CONTRAST STAT 03/04/2025 6:02 AM EDT [id number], RSV, FLU A AND B QUALITATIVE RT-PCR, INTERNAL LAB STAT 03/04/2025 3:20 AM EDT ECG ANNOTATED 03/04/2025 ECG 12-LEAD STAT 03/03/2025 11:54 PM EDT ACTIVATED PARTIAL THROMBOPLASTIN TIME STAT 03/03/2025 11:44 PM EDT PROTHROMBIN TIME WITH INR STAT 03/03/2025 11:44 PM EDT MANUAL DIFFERENTIAL - SYSMEX WAM STAT 03/03/2025 11:38 PM EDT CBC WITH AUTO DIFFERENTIAL STAT 03/03/2025 11:38 PM EDT LIPASE STAT 03/03/2025 11:38 PM EDT MAGNESIUM STAT 03/03/2025 11:38 PM EDT COMPREHENSIVE METABOLIC PANEL STAT 03/03/2025 11:38 PM EDT CBC AND DIFFERENTIAL STAT 03/03/2025 11:38 PM EDT DALTON SCREENING DIGITAL Routine 11/29/2023 1:12 PM EDT Encounter for screening mammogram for malignant neoplasm of breast from Last 3 Months or Most Recently Relevant to Health Maintenance Results * (ABNORMAL) POCT Glucose, blood (03/07/2025 8:25 AM EDT) Only the most recent of13 resultswithin the time period is included. [facility] Glucose POCT 166(H) 70 - 100 mg/dL 03/07/2025 8:26 AM EDT [facility] Blood Capillary blood specimen / Unknown 03/07/2025 8:25 AM EDT 03/07/2025 8:27 AM EDT Kashmir Mtz MD LAB POINT O F CARE TEST DOCKED DEVICE UNSOLICITED RESULTS Final Result [facility] [address] [place] [address], * (ABNORMAL) Complete blood count (03/06/2025 6:15 AM EDT) Only the most recent of2 resultswithin the time period is included. [facility] WBC 13.9(H) 4.8 - 10.8 K/mcL LAB HEMETOLOGY METHOD 03/06/2025 7:32 AM EDT [facility] RBC 4.30 3.80 - 4.80 M/mcL LAB HEMETOLOGY METHOD 03/06/2025 7:32 AM EDT [facility] Hemoglobin 12.7 11.5 - 16.0 g/dL LAB HEMETOLOGY METHOD 03/06/2025 7:32 AM EDT [facility] Hematocrit 37.9 35.0 - 47.0 % LAB HEMETOLOGY METHOD 03/06/2025 7:32 AM EDT [facility] MCV 88.1 79.0 - 98.0 FL LAB HEMETOLOGY METHOD 03/06/2025 7:32 AM EDT [facility] MCH 29.5 27.0 - 32.0 pcg LAB HEMETOLOGY METHOD 03/06/2025 7:32 AM EDT [facility] MCHC 33.5 32.0 - 37.0 g/dL LAB HEMETOLOGY METHOD 03/06/2025 7:32 AM EDT [facility] RDW 13.5 11.0 - 15.0 % LAB HEMETOLOGY METHOD 03/06/2025 7:32 AM EDT [facility] Platelets 314 130 - 400 K/mcL LAB HEMETOLOGY METHOD 03/06/2025 7:32 AM EDT [facility] MPV 10.2 7.0 - 11.0 FL LAB HEMETOLOGY METHOD 03/06/2025 7:32 AM EDT [facility] NRBC 0.0 <1.0 % LAB HEMETOLOGY METHOD 03/06/2025 7:32 AM EDT [facility] NRBC Absolute 0.00 <0.10 K/mcL LAB HEMETOLOGY METHOD 03/06/2025 7:32 AM EDT [facility] Blood Venous blood specimen / Unknown Venipuncture / Unknown 03/06/2025 6:15 AM EDT 03/06/2025 7:32 AM EDT us Kashmir Mtz MD LAB BLOOD ORDERABLE S Final Result [facility] [address] [place] [address], * Phosphorus (03/06/2025 6:15 AM EDT) Only the most recent of2 resultswithin the time period is included. Phosphorus 3.0 2.5 - 4.5 mg/dL LAB CHEMISTRY METHOD 03/06/2025 7:59 AM EDT [facility] Blood Venous blood specimen / Unknown Venipuncture / Unknown 03/06/2025 6:15 AM EDT 03/06/2025 7:11 AM EDT us Kashmir Mtz MD LAB BLOOD ORDERABLE S Final Result [facility] [address] [place] [address], [place] [phone] * Magnesium (03/06/2025 6:15 AM EDT) Only the most recent of3 resultswithin the time period is included. [facility] Magnesium 2.0 1.9 - 2.6 mg/dL LAB CHEMISTRY METHOD 03/06/2025 7:59 AM EDT [facility] Blood Venous blood specimen / Unknown Venipuncture / Unknown 03/06/2025 6:15 AM EDT 03/06/2025 7:11 AM EDT us Kashmir Mtz MD LAB BLOOD ORDERABLE S Final Result [facility] [address] [place] [address], [place] [phone] * (ABNORMAL) Basic metabolic panel (03/06/2025 6:15 AM EDT) Only the most recent of2 resultswithin the time period is included. Pathologist [facility] Sodium 138 133 - 145 mmol/L LAB CHEMISTRY METHOD 03/06/2025 7:59 AM EDT [facility] Potassium 3.8 3.5 - 5.5 mmol/L LAB CHEMISTRY METHOD 03/06/2025 7:59 AM EDT [facility] Chloride 108 96 - 110 mmol/L LAB CHEMISTRY METHOD 03/06/2025 7:59 AM T [facility] CO2 24 21 - 32 mmol/L LAB CHEMISTRY METHOD 03/06/2025 7:59 AM [facility] Anion Gap 6 3 - 11 LAB CHEMISTRY METHOD 03/06/2025 7:59 AM EDT [facility] Glucose 86 70 - 100 mg/dL LAB CHEMISTRY METHOD 03/06/2025 7:59 AM [facility] BUN 19 5 - 25 mg/dL LAB CHEMISTRY METHOD 03/06/2025 7:59 AM [facility] Creatinine 1.44(H) 0.50 - 1.10 mg/dL LAB CHEMISTRY METHOD 03/06/2025 7:59 AM [facility] eGFR 40(L) >=60 mL/min/1. 73m2 LAB CHEMISTRY METHOD 03/06/2025 7:59 AM [facility] Comment:Calculation based on the Chronic Kidney Disease Epidemiology Collaboration (CKD-EPI) equation refit without adjustment for race. BUN/Creatinine Ratio 13.2 LAB CHEMISTRY METHOD 03/06/2025 7:59 AM [facility] Calcium 8.9 8.5 - 10.5 mg/dL LAB CHEMISTRY METHOD 03/06/2025 7:59 AM [facility] Blood Venous blood specimen / Unknown Venipuncture / Unknown 03/06/2025 6:15 AM EDT 03/06/2025 7:11 AM EDT us Kashmir Mtz MD LAB BLOOD ORDERABLE S Final Result [facility] [address] [place] [address], [place] [phone] * Lactate, with reflex (03/04/2025 7:43 AM EDT) LACTIC ACID 1.5 0.4 - 2.0 mmol/L LAB CHEMISTRY METHOD 03/04/2025 8:18 AM EDT [facility] Blood Venous blood specimen / Unknown Venipuncture / Unknown 03/04/2025 7:43 AM EDT 03/04/2025 7:54 AM EDT Raine MENSAH LAB BLOOD ORDERABLES Fin al Result Performing Organization Address City/[facility]/ZIP Co de Phone Number [facility] [address] [place] [address], [place] [phone] * SST tube (03/04/2025 7:40 AM EDT) Extra Tube Hold for add-ons. 03/04/2025 9:01 AM EDT [facility] Comment:Auto resulted. Blood Venous blood specimen / Unknown Venipuncture / Unknown 03/04/2025 7:40 AM EDT 03/04/2025 7:55 AM EDT us Kashmir Mtz MD LAB BLOOD ORDERABLE S Final Result Performing Organization Address City/[facility]/ZIP Co de Phone Number [facility] [address] [place] [address], [place] [phone] * Lavender tube (03/04/2025 7:40 AM EDT) Extra Tube Hold for add-ons. 03/04/2025 9:01 AM EDT [facility] Comment:Auto resulted. Blood Venous blood specimen / Unknown 03/04/2025 7:40 AM EDT 03/04/2025 7:55 AM EDT us Kashmir Mtz MD LAB BLOOD ORDERABLE S Final Result [facility] [address] [place] [address], [place] [phone] * (ABNORMAL) Urinalysis with reflex microscopic (03/04/2025 6:54 AM EDT) Specific [place] Urine 1.031(H) 1.003 - 1.030 LAB URINALYSIS - AUTOMATED METHOD 03/04/2025 7:51 AM [facility] pH, Urine 7.0 5.0 - 8.0 pH LAB URINALYSIS - AUTOMATED METHOD 03/04/2025 7:51 AM [facility] Leukocytes, Urine Large(A) Negative LAB URINALYSIS - AUTOMATED METHOD 03/04/2025 7:51 AM [facility] Nitrite, Urine Positive(A) Negative LAB URINALYSIS - AUTOMATED METHOD 03/04/2025 7:51 AM [facility] [facility] Protein, Urine 100(A) <=Trace mg/dL LAB URINALYSIS - AUTOMATED METHOD 03/04/2025 7:51 AM [facility] Glucose, Urine Negative Negative mg/dL LAB URINALYSIS - AUTOMATED METHOD 03/04/2025 7:51 AM [facility] Ketones, Urine Negative Negative mg/dL LAB URINALYSIS - AUTOMATED METHOD 03/04/2025 7:51 AM [facility] Urobilinogen , Urine 0.2 0.2 - 1.0 mg/dL LAB URINALYSIS - AUTOMATED METHOD 03/04/2025 7:51 AM [facility] Bilirubin, Urine Negative Negative LAB URINALYSIS - AUTOMATED METHOD 03/04/2025 7:51 AM [facility] Blood, Urine Moderate(A) Negative LAB URINALYSIS - AUTOMATED METHOD 03/04/2025 7:51 AM [facility] RBC, Urine 20(H) 0 - 4 /HPF LAB URINALYSIS - AUTOMATED METHOD 03/04/2025 7:51 AM EDT [facility] WBC, Urine 345.2(H) 0 - 4 /HPF LAB URINALYSIS - AUTOMATED METHOD 03/04/2025 7:51 AM EDT [facility] Squamous Epithelial, Urine 27 0 - 60 /LPF LAB URINALYSIS - AUTOMATED METHOD 03/04/2025 7:51 AM EDT [facility] Bacteria, Urine Many(A) Negative /HPF LAB URINALYSIS - AUTOMATED METHOD 03/04/2025 7:51 AM EDT [facility] Hyaline Casts, Urine 0.4 0 - 3 /LPF LAB URINALYSIS - AUTOMATED METHOD 03/04/2025 7:51 AM EDT [facility] Urine Urine specimen obtained by clean catch procedure / Unknown Non-blood Collection / Unknown 03/04/2025 6:54 AM EDT 03/04/2025 7:24 AM EDT Raine MENSAH LAB URINE ORDERABLES Fin al Result Performing Organization Address City/[facility]/ZIP Co de Phone Number [facility] [address] [place] [address], [place] [phone] * (ABNORMAL) Blood culture pathogens molecular study (03/04/2025 6:44 AM EDT) Escherichia coli Detected (A) Not Detected LAB MICROBIOLOGY METHOD 03/04/2025 7:30 PM EDT [facility] Blood Venous blood specimen / Unknown Venipuncture / Unknown 03/04/2025 6:44 AM EDT 03/04/2025 7:24 AM EDT Raine MENSAH LAB MICROBIOLOGY - GENER AL ORDERABLES Final Result Performing Organization Address City/[facility]/ZIP Co de Phone Number [facility] [address] [place] [address], [place] [phone] * (ABNORMAL) Blood Culture, Peripheral Draw #2 (03/04/2025 6:44 AM EDT) Only the most recent of2 resultswithin the time period is included. Culture, Blood Escherichia coli(AA) AIDA 03/06/2025 8:53 AM EDT [facility] Comment: The organism value for this result has been updated. These results have been appended to the previously preliminary verified report. This is an edited result. Previous organism was Gram negative bacilli on 03/05/2025 at 0832 EDT. Gram Stain Result Aerobic and Anaerobic bottles Gram negative bacilli(AA) 03/06/2025 8:53 AM EDT [facility] Comment:This is an appended report. These results have been appended to a previously preliminary verified report. Blood Venous blood specimen / Unknown Venipuncture / Unknown 03/04/2025 6:44 AM EDT 03/04/2025 7:24 AM EDT Narrative Organism Antibiotic Method Susceptibility Escherichia coli Amoxicillin/Clavulanate AIDA <=2 ug/ml: Susceptible Escherichia coli Ampicillin/Sulbactam AIDA <=2 ug/ml: Susceptible Escherichia coli Piperacillin/Tazobactam AIDA <=4 ug/ml: Susceptible Escherichia coli Cefazolin (Other) AIDA <=1 ug/ml: Susceptible Escherichia coli Cefoxitin AIDA <=4 ug/ml: Susceptible Escherichia coli Ceftazidime AIDA <=0.5 ug/ml: Susceptible Escherichia coli Ceftriaxone AIDA <=0.25 ug/ml: Susceptible Escherichia coli Cefepime AIDA <=0.12 ug/ml: Susceptible Escherichia coli Meropenem AIDA <=0.25 ug/ml: Susceptible Escherichia coli Amikacin AIDA 2 ug/ml: Susceptible Escherichia coli Gentamicin AIDA <=1 ug/ml: Susceptible Escherichia coli Ciprofloxacin AIDA <=0.06 ug/ml: Susceptible Escherichia coli Levofloxacin AIDA <=0.12 ug/ml: Susceptible Escherichia coli Trimethoprim/Sulfamethoxazole AIDA <=20 ug/ml: Susceptible Raine MENSAH LAB MICROBIOLOGY - [facility] AL ORDERABLES Final Result [facility] [address] [place] [address], * CT Abdomen Pelvis w Contrast (03/04/2025 6:02 AM EDT) Anatomical Region Laterality Modality Body Computed Tomogra phy 03/04/2025 7:08 AM EDT Impressions 03/04/2025 7:08 AM EDT Small amount of right perinephric fluid with subtle abnormal enhancement pattern in the upper pole suggesting pyelonephritis/focal bacterial nephritis. This document has been electronically signed by: Jani Kang MD on 03/04/2025 07:08:11 Narrative 03/04/2025 7:08 AM EDT INDICATION: Abdominal pain, acute, nonlocalized CT abdomen and pelvis with contrast Comparison: None provided Findings: The lung bases are clear. There are mild coronary artery calcifications. There is a tiny hepatic cyst. The liver and gallbladder are otherwise unremarkable. There is a small amount of right perinephric fluid. There is a somewhat abnormal cortical enhancement pattern in the upper pole of the right kidney best seen on the coronal images and specifically image number 57 of series 602. Pyelonephritis or focal bacterial nephritis is not excluded. Few tiny bilateral renal cysts are noted. The rest of the solid organs are unremarkable. No bowel obstruction, pneumoperitoneum, or pneumatosis. There is colonic diverticulosis without evidence of diverticulitis. The GI tract is otherwise unremarkable. The patient is status post hysterectomy. No acute fracture. Procedure Note Jani Kang MD - 03/04/2025 INDICATION: Abdominal pain, acute, nonlocalized CT abdomen and pelvis with contrast Comparison: None provided Findings: The lung bases are clear. There are mild coronary artery calcifications. There is a tiny hepatic cyst. The liver and gallbladder are otherwise unremarkable. There is a small amount of right perinephric fluid. There is a somewhat abnormal cortical enhancement pattern in the upper pole of the right kidney best seen on the coronal images and specifically image number 57of series 602. Pyelonephritis or focal bacterial nephritis is not excluded. Few tiny bilateral renal cysts are noted. The rest of the solid organs are unremarkable. No bowel obstruction, pneumoperitoneum, or pneumatosis. There is colonic diverticulosis without evidence of diverticulitis. TheGI tract is otherwise unremarkable. The patient is status post hysterectomy. No acute fracture. IMPRESSION: Small amount of right perinephric fluid with subtle abnormal enhancement pattern in the upper pole suggesting pyelonephritis/focal bacterial nephritis. This document has been electronically signed by: Jani Kang MD on 03/04/2025 07:08:[address] PROCEDURES Final Result * [id number], RSV, Influenza A and B qualitative RT-PCR (03/04/2025 3:20 AM EDT) Pathologist [facility] Influenza A PCR Not Detected Not Detected LAB MICROBIOLOGY METHOD 03/04/2025 4:22 AM EDT [facility] Influenza B PCR Not Detected Not Detected LAB MICROBIOLOGY METHOD 03/04/2025 4:22 AM EDT [facility] RSV PCR Not Detected Not Detected LAB MICROBIOLOGY METHOD 03/04/2025 4:22 AM EDT [facility] SARS COV-2 Not Detected Not Detected LAB MICROBIOLOGY METHOD 03/04/2025 4:22 AM EDT [facility] Swab Both anterior nares / Unknown Non-blood Collection / Unknown 03/04/2025 3:20 AM EDT 03/04/2025 3:38 AM EDT Narrative [facility] - 03/04/2025 4:22 AM EDT Disclaimer: Testing was performed using the [employer] GeneXpert Xpress SARS-CoV-2 _Flu_RSV PLUS PCR assay. The manner in which this information is used to guide patient care is the responsibility of the healthcare provider. Results should be correlated with the clinical history, epidemiological data, and other data available to the clinician evaluating the patient. Negative results do not preclude infection. This test has been authorized by the FDA under an Emergency Use Authorization (EUA). This test is only authorized for the duration of time the declaration that circumstances exist justifying the authorization of the emergency use of in vitro diagnostic tests for detection of SARS-CoV-2 virus and/or diagnosis of COVID-19 infection under section 564 (b) (1) of the Act, 21 U.S.C 360bbb-3 (b) (1), unless the authorization is terminated or revoked sooner. Reference Range: Not Detected Fact sheet for Healthcare providers can be found at https://www.fda.gov/media/460816/download. Fact sheet for Healthcare patients can be found at https://www.fda.gov/media/007275/download. Raine Gardiner CRNA LAB MICROBIOLOGY - GENERAL ORD ERABLES Final Result Performing Organization Address City/[facility]/ZIP Co de Phone Number [facility] [address] [place] [address], * ECG-Annotated (03/04/2025) Provider Onbase MD ECG ORDERABLES Final Result * 12-Lead ECG (03/03/2025 11:54 PM EDT) Pathologist [facility] Ventricular Rate ECG 99 BPM GEMUSE Atrial Rate 99 BPM GEMUSE P-R Interval 140 ms GEMUSE QRS Duration 92 ms GEMUSE Q-T Interval 352 ms GEMUSE QTc 451 ms GEMUSE P Wave [place] 59 degrees GEMUSE R [place] 53 degrees GEMUSE T [place] 50 degrees GEMUSE ECG Interpretation Normal sinus rhythm Normal ECG When compared with ECG of 20-APR-2024 18:59, Criteria for Septal infarct are no longer Present Confirmed by SHAHRAM BLACKBURN ([id number]) on 03/04/2025 8:44:40 AM GEMUSE 03/03/2025 11:5 4 PM EDT 03/04/2025 8:44 AM EDT Raine MENSAH ECG ORDERABLES Final Re sult GEMUSE * APTT (03/03/2025 11:44 PM EDT) aPTT 31.0 24.1 - 39.3 sec LAB COAGULATION METHOD 03/04/2025 12:44 AM EDT [facility] Blood Venous blood specimen / Unknown Venipuncture / Unknown 03/03/2025 11:44 PM EDT 03/04/2025 12:28 AM EDT Raine MENSAH LAB BLOOD ORDERABLES Fin al Result Performing Organization Address City/[facility]/ZIP Co de Phone Number [facility] [address] [place] [address], [place] [phone] * Protime-INR (03/03/2025 11:44 PM EDT) [facility] Protime 11.6 10.6 - 13.9 sec LAB COAGULATION METHOD 03/04/2025 12:44 AM EDT [facility] INR 0.9 LAB COAGULATION METHOD 03/04/2025 12:44 AM EDT [facility] Blood Venous blood specimen / Unknown Venipuncture / Unknown 03/03/2025 11:44 PM EDT 03/04/2025 12:28 AM EDT Raine MENSAH LAB BLOOD ORDERABLES Fin al Result Performing Organization Address City/[facility] Co de Phone Number [facility] [address] [place] [address], [place] [phone] * (ABNORMAL) Manual differential (03/03/2025 11:38 PM EDT) Neutrophils % 85.0 % LAB HEMETOLOGY METHOD 03/04/2025 1:15 AM EDT [facility] Bands % 4.0 % LAB HEMETOLOGY METHOD 03/04/2025 1:15 AM EDT [facility] Lymphocytes % 7.0 % LAB HEMETOLOGY METHOD 03/04/2025 1:15 AM EDT [facility] Monocytes % 3.0 % LAB HEMETOLOGY METHOD 03/04/2025 1:15 AM [facility] Eosinophils % 1.0 % LAB HEMETOLOGY METHOD 03/04/2025 1:15 AM [facility] Basophils % 0.0 % LAB HEMETOLOGY METHOD 03/04/2025 1:15 AM [facility] Neutrophils Absolute Manual 18.79(H) 1.50 - 7.00 K/mcL LAB HEMETOLOGY METHOD 03/04/2025 1:15 AM [facility] Bands Absolute Manual 0.88(H) 0.00 - 0.00 K/mcL LAB HEMETOLOGY METHOD 03/04/2025 1:15 AM [facility] Lymphocytes Absolute 1.55 1.00 - 5.00 K/mcL LAB HEMETOLOGY METHOD 03/04/2025 1:15 AM [facility] Monocytes Absolute Manual 0.66 0.20 - 1.00 K/mcL LAB HEMETOLOGY METHOD 03/04/2025 1:15 AM [facility] Eosinophils Absolute Manual 0.22 0.00 - 0.50 K/mcL LAB HEMETOLOGY METHOD 03/04/2025 1:15 AM [facility] Basophils Absolute Manual 0.00 0.00 - 0.20 K/mcL LAB HEMETOLOGY METHOD 03/04/2025 1:15 AM [facility] Rbc Morphology Consistent with indices Consistent with indices, Normal for LAB HEMETOLOGY METHOD 03/04/2025 1:15 AM [facility] Platelet Morphology - WAM Normal Normal LAB HEMETOLOGY METHOD 03/04/2025 1:15 AM [facility] Vacuolated Neutrophils Present Present(A) (none) LAB HEMETOLOGY METHOD 03/04/2025 1:15 AM [facility] Blood Venous blood specimen / Unknown Venipuncture / Unknown 03/03/2025 11:38 PM EDT 03/04/2025 12:28 AM EDT us Raine Gardiner CRNA LAB BLOOD ORDERABLES Final Res ult [facility] [address] [place] [address], * (ABNORMAL) CBC auto differential (03/03/2025 11:38 PM EDT) WBC 22.1(H) 4.8 - 10.8 K/mcL LAB HEMETOLOGY METHOD 03/04/2025 1:15 AM EDT [facility] RBC 4.70 3.80 - 4.80 M/mcL LAB HEMETOLOGY METHOD 03/04/2025 1:15 AM EDT [facility] Hemoglobin 14.2 11.5 - 16.0 g/dL LAB HEMETOLOGY METHOD 03/04/2025 1:15 AM EDT [facility] Hematocrit 42.9 35.0 - 47.0 % LAB HEMETOLOGY METHOD 03/04/2025 1:15 AM EDT [facility] MCV 90.7 79.0 - 98.0 FL LAB HEMETOLOGY METHOD 03/04/2025 1:15 AM EDT [facility] MCH 30.0 27.0 - 32.0 pcg LAB HEMETOLOGY METHOD 03/04/2025 1:15 AM EDT [facility] MCHC 33.1 32.0 - 37.0 g/dL LAB HEMETOLOGY METHOD 03/04/2025 1:15 AM EDT [facility] RDW 13.4 11.0 - 15.0 % LAB HEMETOLOGY METHOD 03/04/2025 1:15 AM EDT [facility] Platelets 418(H) 130 - 400 K/mcL LAB HEMETOLOGY METHOD 03/04/2025 1:15 AM EDT [facility] MPV 9.7 7.0 - 11.0 FL LAB HEMETOLOGY METHOD 03/04/2025 1:15 AM EDT [facility] NRBC 0.0 <1.0 % LAB HEMETOLOGY METHOD 03/04/2025 1:15 AM EDT [facility] NRBC Absolute 0.00 <0.10 K/mcL LAB HEMETOLOGY METHOD 03/04/2025 1:15 AM EDT [facility] Blood Venous blood specimen / Unknown Venipuncture / Unknown 03/03/2025 11:38 PM EDT 03/04/2025 12:28 AM EDT Raine Gardiner CRNA LAB BLOOD ORDERABLES Final Res ult Performing Organization Address City/[facility]/ZIP Co de Phone Number [facility] [address] [place] [address], [place] [phone] * Lipase (03/03/2025 11:38 PM EDT) Lipase 31 13 - 75 unit/L LAB CHEMISTRY METHOD 03/04/2025 1:09 AM EDT [facility] Blood Venous blood specimen / Unknown Venipuncture / Unknown 03/03/2025 11:38 PM EDT 03/04/2025 12:28 AM EDT Raine Gardiner CRNA LAB BLOOD ORDERABLES Final Res ult [facility] [address] [place] [address], [place] [phone] * (ABNORMAL) Comprehensive metabolic panel (03/03/2025 11:38 PM EDT) Sodium 134 133 - 145 mmol/L LAB CHEMISTRY METHOD 03/04/2025 1:09 AM EDT [facility] Potassium 3.4(L) 3.5 - 5.5 mmol/L LAB CHEMISTRY METHOD 03/04/2025 1:09 AM [facility] Chloride 104 96 - 110 mmol/L LAB CHEMISTRY METHOD 03/04/2025 1:09 AM [facility] CO2 25 21 - 32 mmol/L LAB CHEMISTRY METHOD 03/04/2025 1:09 AM [facility] Anion Gap 5 3 - 11 LAB CHEMISTRY METHOD 03/04/2025 1:09 AM [facility] Glucose 101(H) 70 - 100 mg/dL LAB CHEMISTRY METHOD 03/04/2025 1:09 AM [facility] BUN 23 5 - 25 mg/dL LAB CHEMISTRY METHOD 03/04/2025 1:09 AM [facility] Creatinine 1.59(H) 0.50 - 1.10 mg/dL LAB CHEMISTRY METHOD 03/04/2025 1:09 AM [facility] eGFR 36(L) >=60 mL/min/1. 73m2 LAB CHEMISTRY METHOD 03/04/2025 1:09 AM [facility] Comment:Calculation based on the Chronic Kidney Disease Epidemiology Collaboration (CKD-EPI) equation refit without adjustment for race. BUN/Creatinine Ratio 14.5 LAB CHEMISTRY METHOD 03/04/2025 1:09 AM [facility] Calcium 9.2 8.5 - 10.5 mg/dL LAB CHEMISTRY METHOD 03/04/2025 1:09 AM [facility] AST (SGOT) 39 10 - 42 unit/L LAB CHEMISTRY METHOD 03/04/2025 1:09 AM [facility] ALT (SGPT) 30 10 - 60 unit/L LAB CHEMISTRY METHOD 03/04/2025 1:09 AM [facility] Alkaline Phosphatase 118 42 - 121 unit/L LAB CHEMISTRY METHOD 03/04/2025 1:09 AM EDT [facility] Total Protein 7.2 6.0 - 8.0 g/dL LAB CHEMISTRY METHOD 03/04/2025 1:09 AM EDT [facility] Albumin 3.7 3.2 - 5.0 g/dL LAB CHEMISTRY METHOD 03/04/2025 1:09 AM EDT [facility] Total Bilirubin 0.9 0.0 - 1.4 mg/dL LAB CHEMISTRY METHOD 03/04/2025 1:09 AM EDT [facility] Blood Venous blood specimen / Unknown Venipuncture / Unknown 03/03/2025 11:38 PM EDT 03/04/2025 12:28 AM EDT us Raine Gardiner CRNA LAB BLOOD ORDERABLES Final Res ult [facility] [address] [place] [address], * [facility]ALTON SCREENING DIGITAL (11/29/2023 1:12 PM EDT) Anatomical Region Laterality Modality Mammography 11/29/2023 11:1 5 AM EDT Narrative 11/29/2023 1:12 PM EDT [facility] Diagnostic Imaging Department [address] [place] [address] Patient: MEDHAT PEDROZA./Age/Sex: 1960 - 63 - F Unit#: [id number] Location/Status: SPDIMAM/REG CLI Mnemonic[facility]: DAVID WALL [facility] Screening Digital - 11/29/23 - Report Status:Signed EXAM: [facility] Screening Digital EXAM DATE AND TIME: 11/29/2023 11:38 AM HISTORY: Annual screening COMPARISON: Multiple exams dating back to 2019 TECHNIQUE: Bilateral digital breast tomosynthesis was performed in the CC and MLO projections. Computer aided detection with [employer] 3D 3.1 was employed. TISSUE DENSITY: b. There are scattered areas of fibroglandular density. FINDINGS: No suspicious masses, grouped microcalcifications, or areas of architectural distortion are seen. The skin and vascularity are unremarkable. IMPRESSION: Stable mammographic appearance of the breasts. No evidence of malignancy is seen. A negative mammogram in the presence of a clinically suspicious palpable abnormality does not preclude the possibility of malignancy or alter the indications for biopsy. BI-RADS: Category 1: Negative RECOMMENDATION(S): 1: Routine screening mammogram BILATERAL in 1 year. 3341F, 7025F Dictating Physician: PATRICK HARRIS MD Electronically Signed by: PATRICK HARRIS MD Dic Date/Time: 11/29/23 1311 Sign date/Time: 11/29/23 1312 Procedure Note Patrick Harris MD - 04/10/2024 [facility] Diagnostic Imaging Department [address] [place] [address] Patient: MEDHAT PEDROZA/Age/Sex: 1960 - 63 - F Unit#: [id number] Location/Status: SPDIMAM/REG CLI Mnemonic/Ordering Site: [facility] Ordering Physician: DAVID WALL [place] Screening Digital - 11/29/23 - Report Status:Signed EXAM: [facility] Screening Digital EXAM DATE AND TIME: 11/29/2023 11:38 AM HISTORY: Annual screening COMPARISON: Multiple exams dating back to 2019 TECHNIQUE: Bilateral digital breast tomosynthesis was performed in the CCand MLO projections. Computer aided detection with [employer] 3D 3.1was employed. TISSUE DENSITY: b. There are scattered areas of fibroglandular density. FINDINGS: No suspicious masses, grouped microcalcifications, or areas ofarchitectural distortion are seen. The skin and vascularity are unremarkable. IMPRESSION: Stable mammographic appearance of the breasts. No evidence of malignancyis seen. A negative mammogram in the presence of a clinically suspicious palpable abnormality does not preclude the possibility of malignancy or alter the indications for biopsy. BI-RADS: Category 1: Negative RECOMMENDATION(S): 1: Routine screening mammogram BILATERAL in 1 year. 3341F, 7017F Dictating Physician: PATRICK HARRIS MD Electronically Signed by: PATRICK HARRIS MD Dic Date/Time: 11/29/23 1311 Sign date/Time: 11/29/23 1312 David MENSAH IMG BI PROCEDURES Final Result from Last 3 Months or Most Recently Relevant to Health Maintenance Insurance [facility] MEDICARE Member Subscriber Plan / Payer (Ef fective 2023-Present) Name:Medhat Pedroza Relation to Subscriber:Self Name:Medhat Pedroza Payer ID:[id number] Group ID:[id number] Type:Not on file Address: [facility] [address] [phone] Advance Directives * Full Code - Default (Latest Code Status on File) Date Activated Date Inactivated Comments 03/04/2025 7:32 AM 03/07/2025 12:52 PM This is orde r is used when code status has not been discussed with the patient, or code status is otherwise unknown/unconfirmed To update the patient's code status, place a code status order. Do not modify or discontinue any currently active code status orders. Care Teams Cinder Man Relationship Specialty Start Date End Date David Wall PA [address] [place] [phone] PCP - General Internal Medicine 03/26/19
--- OUTSIDE RECORDS SUMMARY | 2025-03-25 07:41 | XMS_ITS | Clinical Summary ---
Author Organization [facility] Address [address] [place] [address] Care Team Providers Care Generation Engineer Name Role Phone Sarah Wall PA-C Primary Care Provider Source Comments PLEASE NOTE, if this patient is a minor, it may be UNLAWFUL to discuss sensitive information that is contained in these records (such as FAMILY PLANNING, MENTAL HEALTH or SUBSTANCE ABUSE) with the minor patient's parent or other person without the patient's specific authorization.[facility] Allergies No known active allergies Medications mirtazapine (REMERON) 30 mg tabletIndication s:Panic attack TK 2 TS PO HS 05/03/20 20 Active PARoxetine HCl (PAXIL) 40 mg tabletIndication s:Panic attack TK 1 T PO QD 05/03/20 20 Active diclofenac sodium (VOLTAREN) 1 % gel Apply 2 gm to cervical spine and lumbar spine qhs 300 g 11 09/30/19 21 Active cyclobenzaprine (FLEXERIL) 10 mg tabletIndication s:Cervicalgia Take 10 mg by mouth 3 (three) times daily 06/14/20 21 Active acetaminophen (TYLENOL 8 HOUR) 650 mg CR tabletIndication s:Cervicalgia Take 1 Tablet by mouth every 8 (eight) hours as needed for pain 90 Tablet 4 09/07/19 22 Active miscellaneous medical supply miscIndications: Bilateral carpal tunnel syndrome by miscellaneous route once daily Cts splint bilateral, disp 1 pair, dx bilateral cts 1 Each 04/19/20 22 Active miscellaneous medical supply miscIndications: Bilateral carpal tunnel syndrome by miscellaneous route once daily Salonpas large, disp 60/month, dx lumbar disc disease 60 Each 11 04/19/20 22 Active hydrocortisone (ANUSOL-HC) 2.5 % topical creamIndications :External hemorrhoid Place rectally 3 (three) times a week 30 g 3 04/19/20 22 Active alcohol swabsIndications :Type 2 diabetes mellitus without complication, without long-term current use of insulin Use qd, dx E11.9 50 Each 11 10/10/19 24 Active lancets (FREESTYLE LANCETS) 28 gaugeIndications :Type 2 diabetes mellitus without complication, without long-term current use of insulin Freestyle lite lancets, use QD, dx E11.9 50 Each 11 10/10/19 24 Active blood sugar diagnostic stripsIndication s:Type 2 diabetes mellitus without complication, without long-term current use of insulin 1 Each daily. Freestyle lite strips use QD, dx E11.9 50 Each 10/10/19 24 Active MISCELLANEOUS MEDICAL SUPPLY MISCIndications: Other urinary incontinence by miscellaneous route daily. Size small adult pull ups disp 100/month dx mixed incontinence 100 Each 11 01/02/20 24 Active MISCELLANEOUS MEDICAL SUPPLY MISCIndications: Other urinary incontinence by miscellaneous route daily. Personal wipes disp 100/month dx mixed incontinence 100 Each 11 01/02/20 24 Active FREESTYLE LITE METER monitoring kitIndications:T ype 2 diabetes mellitus without complication, without long-term current use of insulin USE DIRECTED DAILY 1 Each 01/14/20 24 Active levoFLOXacin (LEVAQUIN) 250 mg tablet Take 1 Tablet by mouth once daily 3 Tablet 01/19/20 24 Active MISCELLANEOUS MEDICAL SUPPLY MISC by miscellaneous route daily. Shower chair, disp1,lifetime need, dx lumbar disc disease 1 Each 01/29/20 24 Active VENTOLIN HFA 90 mcg/actuation inhalerIndicatio ns:Mild intermittent asthma without complication INHALE 2 PUFFS INTO THE LUNGS EVERY 4 HOURS NEEDED FOR SHORTNESS OF BREATH OR WHEEZING 18 g 03/08/20 24 Active fluticasone propion-salmeter oL (ADVAIR) 250-50 mcg/dose diskus inhalerIndicatio ns:Subacute cough,Bronchitis Inhale 1 Puff into the lungs 2 (two) times daily 60 Each 2 04/22/20 24 Active benzonatate (TESSALON) 100 mg capsuleIndicatio ns:Acute cough Take 1 Capsule by mouth 3 (three) times daily as needed for cough 30 Capsule 07/24/19 25 Active mupirocin (BACTROBAN) 2 % ointmentIndicati ons:Cellulitis of left toe Apply 1 g topically 3 (three) times daily 22 g 08/29/19 25 Active silver sulfADIAZINE (SILVADENE) 1 % creamIndications :Paronychia of toe of left foot Apply topically nightly at bedtime 80 g 1 10/09/19 25 Active cholecalciferol (VITAMIN D-3) 50 mcg (2,000 unit) tablet Take 1 Tablet by mouth once daily. 90 Tablet 3 12/18/19 25 Active allopurinoL (ZYLOPRIM) 100 mg tabletIndication s:Hyperuricemia TAKE 1 TABLET BY MOUTH DAILY 90 Tablet 1 12/23/19 25 Active metFORMIN (GLUCOPHAGE) 500 mg tabletIndication s:Type 2 diabetes mellitus without complication, without long-term current use of insulin TAKE 1 TABLET BY MOUTH DAILY WITH BREAKFAST 90 Tablet 1 12/23/19 25 Active atorvastatin (LIPITOR) 20 mg tablet TAKE 1 TABLET BY MOUTH EVERY NIGHT AT BEDTIME 90 Tablet 1 12/23/19 25 Active lisinopriL-hydro chlorothiazide 20-12.5 mg per tabletIndication s:Essential hypertension, benign TAKE 1 TABLET BY MOUTH EVERY DAY FOR HIGH BLOOD PRESSURE 90 Tablet 4 02/24/20 25 Active Active Problems Problem Noted Date Diagnosed Date Lumbar disc disease 01/02/2024 Diabetes mellitus type 2, uncomplicated 10/10/19 24 Stage 3a chronic kidney disease 07/06/2022 Overview (07/06/2022): 2021 CKD stage III Non-oliguric In the setting of hypertension Renal U/S 2018 Overall likely hypertensive nephrosclerosis. Positive colorectal cancer s creening using Cologuard test 04/202205/24/2022 Microhematuria 08/22/2019 Microalbuminuria 08/09/2018 Post herpetic neuralgia 03/27/2018 Mild hyperlipidemia 01/03/2018 Pulmonary nodule on LDCT , repeat 1 year, 03/29/2021 06/01/2017 Cervicalgia 07/27/2016 Overview (01/03/2018): Images from the original note were not included. Result type: Pain Management Note Office Result date: December 26, 2017 14:30 EDT Result status: Auth (Verified) Result title: Interventional Pain Management Note Performed by: Leonardo Plummer MD on December 26, 2017 12:44 EDT Verified by: Leonardo Plummer MD on December 26, 2017 15:23 EDT Encounter info: [id number], PAIN MGMT, Discharged OutPatient, 12/26/2017 - 12/26/2017 Interventional Pain Management Note Patient: MEDHAT PEDROZA Age: 57 years Sex: Female : 1960 Associated Diagnoses: None Author: Leonardo Plummer MD Visit Information Service Date: 12/26/2017. PCP: Sarah Yost. Insurance Medicaid. Medicare. Accompanied: by in store marketer Terell BAUMAN . Chief Complaint: neck pain. [...] is a 57 y.o. female referred by [facility] for neck and shoulder pain. Pt states pain is like a pulling or tearing. Makes cracking sounds. Pt has never seen a intervention specialist. Pt states she has some weakness in [...] Problems HTN - Hypertension / SNOMED CT 7051534113 / Confirmed Well female adult / SNOMED CT 375942890 / Confirmed Allergies Allergies reviewed. Medication Reconciliation completed (Selected) Documented Medications Documented PARoxetine 20 mg oral tablet: 20 mg, 1, tablet, By Mouth, Daily, Refills 0, Maintenance, 10/30/17 9:16:27 EDT ProAir HFA: 2 puffs, Inhalation, [...] over neck MUSCULOSKELETAL: Strength: slight weakness on yard jacker in left hand. Palpation: focal tenderness over [...] therapy, home exercise program. 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 Short term [...] attending ([place]) Report sent to all consultants: Sarah Yost. Generalized osteoarthrosis, unspecified site 06/2016 Panic attack 12/31/2015 Overview (12/31/2015): [facility] We[facility] [place] Essential hypertension, benign 12/31/2015 H/O: hysterectomy 12/31/2015 Mild persistent asthma without complication 12/2015 Urinary incontinence 12/31/2015 Chronic pain of left knee 12/31/2015 Encounters Date Type Department Care Team Description 03/17/2025 Interim Notes [facility] [address] [place] [id number] Beau Milligan MA from Last 3 Months Immunizations Immunization Administration Dates Next Due Flu, Cell Culture based, Pre servative Free, 6m+, Flucelvax 03/21/2017 Flu, Preservative Free 05/12/2023,2021,04/15/2021,08/21,03/27/2018 Influenza (FLUBLOK),recombinant,injectable,prese rvative Free 04/04/2024 Moderna COVID-19 (Spikevax), Mrna, Lnp-s, Pf, 50 Mcg/0.5 Ml, 12yr+ 05/12/2023 Moderna COVID-19 Vaccine, re d cap blue label, 12+ Primary Series 06/17/2021,10/17/2020,09/18/2020 PNEUMOCOCCAL CONJUGATE PCV 2 0 (Prevnar 20) 07/06/2022 PNEUMOCOCCAL POLYSACCHARIDE PPV23 (Pneumovax 23) 11/05/2018 TDAP 06/01/2017 ZOSTER VACCINE, RECOMBINANT (SHINGRIX) 3,11/16/2018 Social History Tobacco Use Types Packs/Day Years Used Date Smoking Tobacco: Every Day Cigarettes 0.7 43.8 Started: 1981 Passive Smoke Exposure: Never Smokeless Tobacco: Never Tobacco Cessation:Ready to Q uit: No; Counseling Given: Yes Comments:5-6 cigarettes Alcohol Use Standard Drinks/Week Comments No 0 (1 standard drink = 0.6 oz pur e alcohol) socc Social Connections Answer Date Recorded How often do you feel lonely or isolated from th ose around you? 1 07/10/2024 Financial Resource Strain Answer Date R ecorded Hard to pay for: Food 1 07/10/2024 Stress Answer Date Recorded Do you feel these kinds of stress these days? 1 07/10/2024 Physical Activity Answer Date Recorded Physical Activity 0 02/13/2019 Food Insecurity Answer Date Recorded Hard to pay for: Food 1 07/10/2024 Transportation Needs Answer Date Record ed Hard to pay for: Transportation 1 07/10/2024 Housing Stability Answer Date Recorded Hard to pay for: Rent/Mortgage payment 1 07/10/2024 Safety and Environment Answer Date Toby rded Safety 1 10/04/2023 Utilities Answer Date Recorded Hard to pay for: Utilities 1 07/10 Employment Answer Date Recorded Stress 0 09/27/2022 Comments No Sex and Gender Information Value Date Recorded Sex Assigned at Female 04/04/2017 6:24 PM PDT Legal Sex Female 6:26 AM PDT Gender Identity Female 04/04/2017 6:24 PM PDT Sexual Orientation Straight 04/04/2017 6: 24 PM PDT Last Filed Vital Signs Vital Sign Reading Time Taken Comments Blood Pressure 110/64 12/10/2024 1:55 PM EDT Pulse 88 12/10/2024 1:55 PM EDT Temperature 36.6 C (97.8 F) 12/10/2024 1:55 PM EDT Respiratory Rate 16 12/10/2024 1:55 PM EDT Oxygen Saturation 96% 12/10/2024 1:55 PM EDT Inhaled Oxygen Concentration - - Weight 65.8 kg (145 lb) 12/10/2024 1:55 PM EDT Height 157.5 cm (5' 2 ) 12/10/2024 1:55 PM EDT Body Mass Index 26.52 12/10/2024 1:55 PM EDT Plan of Treatment Health Maintenance Due Date Last Done Comments Anxiety Screening 1960 Dental Examination 1960 STI Counseling 1960 Medicare Annual Wellness Visit 1977 CT Colonography 2004 Flexible Sigmoidoscopy 2004 Imm-Zoster, Recombinant (2 of 2) 11/22/2022 09/28/19 23, 11/16/2018 FIT/gFOBT 05/09/2023 05/09/2022, 11/24 (Managed by Outside Provider) Bone Density Screening 2024 Falls Prevention 2024 Breast Cancer Screening (Mammogram) 11/28/2024 11/29/2023, 10/18/2022, 10/13/2021, Additional history exists Retinopathy Screening 12/07/2024 12/08/2023 [id number] ( season) 2025 05/12/2023, 02/07/2022, 06/17/2021, Additional history exists Imm-Influenza (#1) 2025 04/04/2024, 1 07/12/2022, 04/19/2022, Additional history exists Fecal DNA 05/09/2025 05/09/2022 Hemoglobin A1c 06/04/2025 12/03/2024, 06/26, 01/17/2024, Additional history exists Diabetes Foot Exam 07/17/2025 07/17/2024, 01/02/2024 Lung Cancer Screening 11/11/2025 11/11/2024, 025 Lipid Screening 12/03/2025 12/03/2024, 06/26, 01/17/2024, Additional history exists Urine Albumin Creatinine Rat io Screening 12/03/2025 12/03/2024, 10/04/2023, 09/27/2022, Additional history exists Tobacco Cessation Counseling (#1) 12/10/2025 Serum Creatinine 03/06/2026 03/06/2025, 03/2025, 03/03/2025, Additional history exists Imm-DTaP/Tdap/Td (2 - Td or Tdap) 06/01/2027 017 Colonoscopy 08/25/2027 08/24/2022, 03/0 06/2022, 08/24/2022 Colorectal Cancer Screening 08/25/2027 Imm-Pneumococcal 50+ Completed 07/06/2022, 11/06/19 Alcohol and Drug Screen Completed 07/10/19, 10/04/2023, 07/31/2023, Additional history exists Depression Annual Screen Completed 025, 12/31/2015 (Managed by Outside Provider) HIV Screening Completed 12/03/2024, 03/27, 09/15/2020, Additional history exists Hepatitis C Screening Completed 12/03/2024 , 04/19/2022, 09/15/2020, Additional history exists Procedures Procedure Name Priority Date/Time Associated Diagnosis Comments IMAGING SCANNED DOCUMENT 03/04/2025 3:00 AM EDT CARD SCANNED DOCUMENT 03/03/2025 3:[address] MAXILLOFACIAL W Routine 01/09/2025 3: 00 AM EDT Faith tenderness HIV 1/2 AG & AB W/RFLX (4TH GEN) Routine 12/03/2024 1:35 PM EDT Routine general medical examination at a health care facility Type 2 diabetes mellitus without complication, without long-term current use of insulin ([facility] & HHS-HCC) Essential hypertension, benign Mild hyperlipidemia Lumbar disc disease Stage 3a chronic kidney disease (CMS & HHS-HCC) Paronychia of toe of left foot Tobacco use STD exposure COMPREHENSIVE METABOLIC PANEL Routine 12/03/2024 1:35 PM EDT Routine general medical examination at a health care facility Type 2 diabetes mellitus without complication, without long-term current use of insulin ([facility] & HHS-HCC) Essential hypertension, benign Mild hyperlipidemia Lumbar disc disease Stage 3a chronic kidney disease (CMS & HHS-HCC) Paronychia of toe of left foot Tobacco use STD exposure HEPATITIS C AB W/RFLX HCV RNA, QT, RT PCR Routine 12/03/2024 1:35 PM EDT Routine general medical examination at a health care facility Type 2 diabetes mellitus without complication, without long-term current use of insulin ([facility] & HHS-HCC) Essential hypertension, benign Mild hyperlipidemia Lumbar disc disease Stage 3a chronic kidney disease (CMS & HHS-HCC) Paronychia of toe of left foot Tobacco use STD exposure LIPID PANEL Routine 12/03/2024 1:35 PM EDT Routine general medical examination at a health care facility Type 2 diabetes mellitus without complication, without long-term current use of insulin ([facility] & HHS-HCC) Essential hypertension, benign Mild hyperlipidemia Lumbar disc disease Stage 3a chronic kidney disease (CMS & HHS-HCC) Paronychia of toe of left foot Tobacco use STD exposure MICROALBUMIN/CREATININ E RATIO, URINE, RANDOM Routine 12/03/2024 1:35 PM EDT Routine general medical examination at a health care facility Type 2 diabetes mellitus without complication, without long-term current use of insulin ([facility]) Essential hypertension, benign Mild hyperlipidemia Lumbar disc disease Stage 3a chronic kidney disease ([facility] & HHS-HCC) Paronychia of toe of left foot Tobacco use STD exposure HEMOGLOBIN GLYCOSYLATED A1C Routine 12/03/2024 1:35 PM EDT Routine general medical examination at a health care facility Type 2 diabetes mellitus without complication, without long-term current use of insulin ([facility]) Essential hypertension, benign Mild hyperlipidemia Lumbar disc disease Stage 3a chronic kidney disease ([facility]) Paronychia of toe of left foot Tobacco use STD exposure LUNG CANCER SCREENING (LOW DOSE CT OF CHEST) SCANNED DOCUMENT 11/11/2024 3:00 AM EDT EYE EXAM 12/08/2023 3:00 AM EDT HISTORIC MAMMOGRAM 11/29/2023 3: 00 AM EDT HISTORIC COLONOSCOPY 08/24/2022 3:00 AM EST COLOGUARD Routine 05/09/2022 3:00 AM EST Colon cancer screening from Last 3 Months or Most Recently Relevant to Health Maintenance Results * IMAGING SCANNED DOCUMENT (03/04/2025 3:00 AM EDT) 03/04/2025 3:00 AM EDT Sarah Khankin PA-C SCAN IMAGING Final Result * CARD SCANNED DOCUMENT (03/03/2025 3:00 AM EDT) 03/03/2025 3:00 AM EDT us Sarah Khankin PA-C SCAN ECGS Final Result * CT MAXILLOFACIAL W (01/09/2025 3:00 AM EDT) 01/09/2025 3:00 AM EDT Impressions [facility] DIAGNOSTIC IMAGING - 01/11/2025 6:30 AM EDT IMPRESSION: No acute findings. Unremarkable examination. Ronni Alvarez MD Signed by Ronni Alvarez MD Read by: Dr. RONNI ALVAREZ M.D. Reviewed and Electronically Signed by: Dr. RONNI ALVAREZ M.D. [facility] DIAGNOSTIC IMAGING - 01/11/2025 6:30 AM EDT Original Report PROCEDURE: CT MAXILLO FACIAL with CONTRAST INDICATION: Bilateral scientologist indentation. Headache. TECHNIQUE: CT of the maxillofacial bones was performed with contrast, 100 mL Omnipaque 350. Automated mA/kV exposure control was utilized and patient examination was performed in strict accordance with principles of ALARA. RADIATION AMOUNT: 518.6 mGy-cm. COMPARISON: None available. FINDINGS: There are no facial bone fractures. The paranasal sinuses are clear. There are no air-fluid levels. Globes, orbits, and extraocular muscles are intact. No retrobulbar hematoma is demonstrated. The temporomandibular joints are unremarkable. The visualized mastoid air cells are clear. The visualized intracranial portions and neck soft tissues are within normal limits. Procedure Note Default, [facility] Provider - 01/11/2025 Original Report PROCEDURE: CT MAXILLO FACIAL with CONTRAST INDICATION: Bilateral scientologist indentation. Headache. TECHNIQUE: CT of the maxillofacial bones was performed with contrast, 100 mL Omnipaque 350. Automated mA/kV exposure control was utilized and patient examination was performed in strict accordance with principles of ALARA. RADIATION AMOUNT: 518.6 mGy-cm. COMPARISON: None available. FINDINGS: There are no facial bone fractures. The paranasal sinuses are clear. There are no air-fluid levels. Globes, orbits, and extraocular muscles are intact. No retrobulbar hematoma is demonstrated. The temporomandibular joints are unremarkable. The visualized mastoid air cells are clear. The visualized intracranial portions and neck soft tissues are within normal limits. IMPRESSION: IMPRESSION: No acute findings. Unremarkable examination. Ronni Alvarez MD Signed by Ronni Alvarez MD Read by: Dr. RONNI ALVAREZ M.D. Reviewed and Electronically Signed by: Dr. RONNI ALVAREZ M.D. Sarah Wall PA-C IMG CT Edited Resul t - Final [facility] DIAGNOSTIC IMAGING Corporate Office [address], [address] [place] [address], * HEPATITIS C AB W/RFLX HCV RNA, QT, RT PCR Routine (12/03/2024 1:35 PM EDT) HEPATITIS C ANTIBODY NON-REACT COURTNEY NON-REACT COURTNEY [place] [facility] Comment: HCV antibody was non-reactive. There is no laboratory evidence of HCV infection. In most cases, no further action is required. However, if recent HCV exposure is suspected, a test for HCV RNA (test code 07256) is suggested. For additional information please refer to http://education.[employer]/faq/OEW37n8 (This link is being provided for informational/ educational purposes only.) Blood Blood / Unknown 12/03/2024 1 :35 PM EDT 12/03/2024 1:36 PM EDT Sarah Wall PA-C LAB - BLOOD DRAW Edited Resu lt - Final [place] [address] [address], [place] [address] [id number] * HIV 1/2 AG & AB W/RFLX (4TH GEN) Routine (12/03/2024 1:35 PM EDT) HIV AG/AB, 4TH GEN NON-REAC TIVE NON-REAC TIVE [facility] Comment: HIV-1 antigen and HIV-1/HIV-2 antibodies were not detected. There is no laboratory evidence of HIV infection. PLEASE NOTE: This information has been disclosed to you from records whose confidentiality may be protected by state law. If your state requires such protection, then the state law prohibits you from making any further disclosure of the information without the specific written consent of the person to whom it pertains, or as otherwise permitted by law. A general authorization for the release of medical or other information is NOT sufficient for this purpose. For additional information please refer to http://education.[employer]/faq/REN481 (This link is being provided for informational/ educational purposes only.) The performance of this assay has not been clinically validated in patients less than 2 years old. Blood Blood / Unknown 12/03/2024 1 :35 PM EDT 12/03/2024 1:36 PM EDT Sarah Wall PA-C LAB - BLOOD DRAW Final Resul t [facility] [address] [place] [address], [place] [address] [address] * (ABNORMAL) MICROALBUMIN/CREATININE RATIO, URINE, RANDOM Urine Routine (12/03/2024 1:35 PM EDT) CREATININE, RANDOM URINE 127 20 - 275 mg/dL [facility] MICROALBUMIN 9.1 mg/dL [facility] [employer] To Get Approved For Comment: Reference Range Not established MICROALBUMIN/CREA TININE RATIO, RANDOM URINE 72(H) <30 mg/g creat [facility] Comment: The ADA defines abnormalities in albumin excretion as follows: Albuminuria Category Result (mg/g creatinine) Normal to Mildly increased <30 Moderately increased 30-299 Severely increased > OR = 300 The ADA recommends that at least two of three specimens collected within a 3-6 month period be abnormal before considering a patient to be within a diagnostic category. Urine Urine specimen / Unknown 12/03/2024 1:35 PM EDT 12/03/2024 1:36 PM EDT Sarah Wall PA-C LAB URINE AMBULATORY Final R esult Performing Organization Address City/[facility]/ZIP Co de Phone Number [place] [address] [address], [place] [address] [address] * (ABNORMAL) HEMOGLOBIN GLYCOSYLATED A1C Routine (12/03/2024 1:35 PM EDT) HEMOGLOBIN A1C 6.9(H) <5.7 % [place] [facility] Comment: For someone without known diabetes, a hemoglobin A1c value of 6.5% or greater indicates that they may have diabetes and this should be confirmed with a follow-up test. For someone with known diabetes, a value <7% indicates that their diabetes is well controlled and a value greater than or equal to 7% indicates suboptimal control. A1c targets should be individualized based on duration of diabetes, age, comorbid conditions, and other considerations. Currently, no consensus exists regarding use of hemoglobin A1c for diagnosis of diabetes for children. Blood Blood / Unknown 12/03/2024 1 :35 PM EDT 12/03/2024 1:36 PM EDT Sarah Wall PA-C LAB - BLOOD DRAW Edited Resu lt - Final Performing Organization Address [facility] Co de Phone Number [place] [address] [address], [place] [address] [address] * (ABNORMAL) LIPID PANEL Routine (12/03/2024 1:35 PM EDT) CHOLESTEROL, TOTAL 157 <200 mg/dL [place] [facility] HDL CHOLESTEROL 38(L) > OR = 50 mg/dL [place] [facility] TRIGLYCERIDES 190(H) <150 mg/dL [place] [facility] LDL-CHOLESTEROL 91 99 mg/dL (calc) [place] [facility] Comment: Reference range: <100 Desirable range <100 mg/dL for primary prevention; <70 mg/dL for patients with CHD or diabetic patients with > or = 2 CHD risk factors. LDL-C is now calculated using the Raul-Garcia calculation, which is a validated novel method providing better accuracy than the Friedewald equation in the estimation of LDL-C. Raul SS et al. JANIS. 2013;310(35): 4177-8359 (http://education.[employer]/faq/RTJ780) CHOL/HDLC RATIO 4.1 <5.0 (calc) [facility] NON-HDL CHOLESTEROL 119 <130 mg/dL (calc) [facility] Comment: For patients with diabetes plus 1 major ASCVD risk factor, treating to a non-HDL-C goal of <100 mg/dL (LDL-C of <70 mg/dL) is considered a therapeutic option. Blood Blood / Unknown 12/03/2024 1 :35 PM EDT 12/03/2024 1:36 PM EDT Sarah Wall PA-C LAB - BLOOD DRAW Final Resul t [facility] [employer] [facility] [address] [address], [place] [address] [address] * (ABNORMAL) COMPREHENSIVE METABOLIC PANEL Routine (12/03/2024 1:35 PM EDT) GLUCOSE 119(H) 65 - 99 mg/dL [place] [facility] Comment: Fasting reference interval For someone without known diabetes, a glucose value between 100 and 125 mg/dL is consistent with prediabetes and should be confirmed with a follow-up test. UREA NITROGEN (BUN) 31(H) 7 - 25 mg/dL [place] [facility] CREATININE (blood) 1.46(H) 0.50 - 1.05 mg/dL [facility] EGFR 40(L) > OR = 60 mL/min/1. 73m2 [facility] BUN/CREATININE RATIO 21 6 - 22 (calc) [place] [facility] SODIUM 141 135 - 146 mmol/L [facility] POTASSIUM 4.4 3.5 - 5.3 mmol/L [facility] CHLORIDE 105 98 - 110 mmol/L [facility] CARBON DIOXIDE 28 20 - 32 mmol/L [facility] CALCIUM 10.2 8.6 - 10.4 mg/dL [place] [facility] PROTEIN, TOTAL 7.2 6.1 - 8.1 g/dL [place] [facility] ALBUMIN 4.3 3.6 - 5.1 g/dL [place] [place] [facility] GLOBULIN 2.9 1.9 - 3.7 g/dL (calc) [facility] ALBUMIN/GLOBULI N RATIO 1.5 1.0 - 2.5 (calc) [place] [facility] BILIRUBIN, TOTAL 0.3 0.2 - 1.2 mg/dL [place] [facility] ALKALINE PHOSPHATASE 83 37 - 153 U/L [place] [facility] AST 12 10 - 35 U/L [place] ALT 15 6 - 29 U/L [place] Blood Blood / Unknown 12/03/2024 1 :35 PM EDT 12/03/2024 1:36 PM EDT us Sarah Wall PA-C LAB - BLOOD DRAW Edited Resu lt - Final [place] [address] [address], [place] [address] [id number] * LUNG CANCER SCREENING (LOW DOSE CT OF CHEST) SCANNED DOCUMENT (11/11/2024 3:00 AM EDT) 11/11/2024 3:00 AM EDT us Sarah Wall PA-C SCAN IMAGING Final Result * EYE EXAM (12/08/2023 3:00 AM EDT) 12/08/2023 3:00 AM EDT us Sarah Wall PA-C OTHER Final Result * HISTORIC MAMMOGRAM (11/29/2023 3:00 AM EDT) 11/29/2023 3:00 AM EDT us Sarah MENSAH-C IMG MAMMO Edited Resul t - Final * HISTORIC COLONOSCOPY (08/24/2022 3:00 AM EST) 08/24/2022 3:00 AM EST Sarah Wall PA-C PROCEDURES Edited Resul t - Final * COLOGUARD (05/09/2022 3:00 AM EST) Stool Stool specimen / Unknown 05/09/2022 3:00 AM EST Sarah Wall PA-C LAB BODY FLUIDS AND STOOLS A MBULATORY Edited Result - Final [facility] [address] [place] [address], [address] [facility] [id number] [place] [id number], from Last 3 Months or Most Recently Relevant to Health Maintenance Insurance [facility] [place] [id number] Care Teams Generation Engineer Relationship Specialty Start Date End Date Sarah Wall PA-C [address] [place] [address] PCP - General Internal Medicine 02/02/17
--- OUTSIDE RECORDS SUMMARY | 2025-03-25 07:41 | XMS_ITS | Encounter Summary ---
Author Organization [facility] Address [address] [place] [address] Care Team Providers Care Machine Stone Polisher Name Role Phone Sarah Wall Primary Care Provider [phone] Encounter Details Date Type Department Care Team (Late st Contact Info) Description 07/31/2024 Lab Requisition [facility] - Main Lab [address] [facility] [phone] Katelyn Zhang PA [address] [place] [address] Urinary tract infection, site not specified Social History Tobacco Use Types Packs/Day Years Used Date Smoking Tobacco: Every Day Smokeless Tobacco: Never Alcohol Use Standard Drinks/Week Comments Not Currently 0 (1 standard drink = 0.6 oz pur e alcohol) Comments Unknown Sex and Gender Information Value Date Recorded Sex Assigned at Not on file Legal Sex Female 3:14 PM EST Gender Identity Not on file Sexual Orientation Not on file documented as of this encounter Plan of Treatment Not on file documented as of this encounter Procedures Procedure Name Priority Date/Time Associated Diagnosis Comments CULTURE URINE Routine 07/31/2024 11:15 AM EST Urinary tract infection, site not specified documented in this encounter Results * (ABNORMAL) Culture urine (07/31/2024 11:15 AM EST) Culture, Urine >100,000 CFU/mL Escherichia coli(A) AIDA 08/02/2024 11:[address] [facility] Comment: This is an edited result. Previous organism was Gram negative bacilli on 08/01/2024 at 1302 EST. Urine Urine specimen obtained by clean catch procedure / Unknown 07/31/2024 11:15 AM EST 07/31/2024 6:21 PM EST Narrative Organism Antibiotic Method Susceptibility Escherichia coli Amoxicillin/Clavulanate AIDA 16 ug/ml: Intermediate Escherichia coli Ampicillin/Sulbactam AIDA >=32 ug/ml: Resistant Escherichia coli Piperacillin/Tazobactam AIDA <=4 ug/ml: Susceptible Escherichia coli Cefazolin (Urine) AIDA 4 ug/ml: Susceptible Escherichia coli Cefoxitin AIDA <=4 ug/ml: Susceptible Escherichia coli Ceftazidime AIDA <=0.5 ug/ml: Susceptible Escherichia coli Ceftriaxone AIDA <=0.25 ug/ml: Susceptible Escherichia coli Cefepime AIDA <=0.12 ug/ml: Susceptible Escherichia coli Meropenem AIDA <=0.25 ug/ml: Susceptible Escherichia coli Amikacin AIDA 2 ug/ml: Susceptible Escherichia coli Gentamicin AIDA <=1 ug/ml: Susceptible Escherichia coli Ciprofloxacin AIDA >=4 ug/ml: Resistant Escherichia coli Levofloxacin AIDA >=8 ug/ml: Resistant Escherichia coli Nitrofurantoin AIDA <=16 ug/ml: Susceptible Escherichia coli Trimethoprim/Sulfamethoxazole AIDA >=320 ug/ml: Resistant Katelyn MENSAH LAB MICROBIOLOGY - GENERAL ORD ERABLES Final Result Performing Organization Address [facility]/State/ZIP Co de Phone Number [facility] [address] [place] [address], documented in this encounter Visit Diagnoses Diagnosis Urinary tract infection, site not specified documented in this encounter Additional Health Concerns Infection Onset Date Last Indicated Resolved Time Respiratory Rule-Out 03/03/2025 03/04/2025 025 4:22 AM EDT COVID-19 Rule-Out 03/03/2025 03/04/2025 03/04/2025 4:22 AM EDT documented as of this encounter Care Teams Machine Stone Polisher Relationship Specialty Start Date End Date Sarah Wall PA [address] [place] [address] PCP - General Internal Medicine 03/26/19 documented as of this encounter
== END 2025-03-25 07:36 | disposition home or self-care (01) ==
LOC: HO.CT 07:35
PROVIDERS: PCP Physician Assistant; Visit Provider Physician Assistant
DX: Z98.1 Arthrodesis status (principal)
CPT/HCPCS: 72131

== ENCOUNTER → 2025-03-25 07:36 | Outpatient (BNV) | payer OTHER, SELFPAY | PROVIDERS: PCP Physician Assistant; Visit Provider Radiology Diagnostic Radiology | DX: Z98.1 Arthrodesis status (principal) | CPT/HCPCS: 72131 ==

== ENCOUNTER 2025-03-31 13:14 | Outpatient (AMB) | payer OTHER, SELFPAY ==
--- NOTE | 2025-03-31 13:23 | A.SPINEOV_ITS ---
Intake Visit Reasons: 1 year f/u with CT Intake Note: Ms. Pedroza is here today for a 1 year f/u with CT Scan. [place] Machine Tender Required: No Allergies No Known Allergies Allergy (Verified 06/18/24 11:48) Assessment & Plan Assessment & Plan (1) S/P spinal fusion: Code(s): Z98.1 - Arthrodesis status Category: Surgical Plan Procedure: L4-5 and L5-S1 Transkambin Lumbar Fusion Chana comes in today for her 1 year follow-up after having L4-5, L5-S1 Transkambin lumbar fusion. To recap during her last office visit she was still reporting some left-sided leg pain. Thankfully this has resolved since we last saw her. She states that she has 0 pain and has been doing fantastic since her surgery. We reviewed her CT scan imaging which shows solid fusion between her surgical construct. I answered any questions that she had relating to the surgery. There is no need for continued routine follow up with Chana, she may follow up on an as needed basis. Lenin Aguilar MD,PhD [facility] Coding Level of Care Code Global (69435) Diagnoses S/P spinal fusion Z98.1
--- OUTSIDE RECORDS SUMMARY | 2025-03-31 15:42 | XMS_ITS | Encounter Summary ---
Author Organization [facility] Address [address] [place] [address] Care Team Providers Care Finished Goods Inspector Name Role Phone Sarah Wall Primary Care Provider [phone] Encounter Details Date Type Department Care Team (Late st Contact Info) Description 07/31/2024 Lab Requisition [facility] - Main Lab [address] [facility] [place] [phone] Katelyn Zhang PA [address] [place] [address] Urinary tract infection, site not specified Social [...] Escherichia coli(A) AIDA 08/02/2024 11:03 AM EST [facility] LAB Comment: This is an edited [...] ORD ERABLES Final Result Performing Organization Address [facility]/State/ZIP Co de Phone Number [facility] [address] [place] [address], documented in this encounter Visit Diagnoses Diagnosis Urinary tract infection, site not specified documented in this encounter Additional Health Concerns Infection Onset Date Last Indicated Resolved Time Respiratory Rule-Out 03/03/2025 03/04/2025 025 4:22 AM EDT COVID-19 Rule-Out 03/03/2025 03/04/2025 03/04/2025 4:22 AM EDT documented as of this encounter Care Teams Finished Goods Inspector Relationship Specialty Start Date End Date Sarah Wall PA [address] [place] [address] PCP - General Internal Medicine 03/26/19 documented as of this encounter
--- OUTSIDE RECORDS SUMMARY | 2025-03-31 15:42 | XMS_ITS | Clinical Summary ---
Author Organization [facility] Address [address] [place] [address] Phone Care Team Providers Care Mri Ct Tech Name Role Phone David Wall Primary Care Provider Allergies No known active allergies Medications benzonatate [...] 01/02/2024 Diabetes mellitus type 2, un complicated ([facility] V24, [facility] V28) 10/10/2023 Stage 3a chronic kidney disease ([facility] V24, [facility] V28) 07/06/2022 Overview (09/03/2024): 2021 CKD [...] December 26, 2017 15:23 EDT Encounter info: [id number], PAIN MGMT, Discharged OutPatient, 12/26/2017 - 12/26/2017 Interventional Pain Management Note Patient: MEDHAT PEDROZA Age: 57 years Sex: Female : 1960 Associated Diagnoses: None Author: Leonardo Plummer MD Visit Information Service Date: 12/26/2017. PCP: David Yost. Insurance Medicaid. Medicare. Accompanied: by instructor tap dancing Terell BAUMAN . Chief Complaint: neck pain. [...] is a 57 y.o. female referred by [facility] for neck and shoulder pain. Pt states pain is like a pulling or tearing. Makes cracking sounds. Pt has never seen a castings drafter. Pt states she has some weakness in [...] Problems HTN - Hypertension / SNOMED CT [id number] / Confirmed Well female adult / SNOMED CT [id number] / Confirmed Allergies Allergies reviewed. 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 Palpation: focal tenderness over [...] therapy, home exercise program. PT short and prison expectations and goals were discussed. Short term [...] attack 12/31/2015 Overview (09/03/2024): Stephon Weeks Md [facility] H/O: hysterectomy 12/31/2015 Mild persistent asthma without complication 12/2015 Urinary incontinence 12/31/2015 Chronic pain of left knee 12/31/2015 Essential hypertension, benign 12/31/2015 Encounters Date Type Department Care Team Description 03/04/2025 5:18 AM EDT - 03/07/2025 10:38 AM EDT Hospital Encounter [facility] [address] [place] [id number] Kashmir Mtz MD Nausea and vomiting, unspecified vomiting type (Primary Dx); Bandemia; Stage 3b chronic kidney disease ([facility] V24, [facility] V28); Pyelonephritis Discharge Disposition: Home or [...] hyperlipidemia DX:Mixed hy perlipidemia Anxiety Diabetes mellitus ([facility] V24, [facility] V28) Social History Tobacco Use Types [...] W CONTRAST STAT 03/04/2025 6:02 AM EDT [id number], RSV, FLU A AND B QUALITATIVE RT-PCR, [...] of13 resultswithin the time period is included. [facility] Glucose POCT 166(H) 70 - 100 mg/dL 03/07/2025 8:26 AM EDT [facility] Blood Capillary blood specimen / Unknown 03/07/2025 8:25 AM EDT 03/07/2025 8:27 AM EDT Kashmir Mtz MD LAB POINT O F CARE TEST DOCKED DEVICE UNSOLICITED RESULTS Final Result [facility] [address] [place] [address], * (ABNORMAL) Complete blood count (03/06/2025 6:15 AM EDT) Only the most recent of2 resultswithin the time period is included. [facility] WBC 13.9(H) 4.8 - 10.8 K/mcL LAB HEMETOLOGY METHOD 03/06/2025 7:32 AM EDT [facility] RBC 4.30 3.80 - 4.80 M/mcL LAB HEMETOLOGY METHOD 03/06/2025 7:32 AM EDT [facility] Hemoglobin 12.7 11.5 - 16.0 g/dL LAB HEMETOLOGY METHOD 03/06/2025 7:32 AM EDT [facility] Hematocrit 37.9 35.0 - 47.0 % LAB HEMETOLOGY METHOD 03/06/2025 7:32 AM EDT [facility] MCV 88.1 79.0 - 98.0 FL LAB HEMETOLOGY METHOD 03/06/2025 7:32 AM EDT [facility] MCH 29.5 27.0 - 32.0 pcg LAB HEMETOLOGY METHOD 03/06/2025 7:32 AM EDT [facility] MCHC 33.5 32.0 - 37.0 g/dL LAB HEMETOLOGY METHOD 03/06/2025 7:32 AM EDT [facility] RDW 13.5 11.0 - 15.0 % LAB HEMETOLOGY METHOD 03/06/2025 7:32 AM EDT [facility] Platelets 314 130 - 400 K/mcL LAB HEMETOLOGY METHOD 03/06/2025 7:32 AM EDT [facility] MPV 10.2 7.0 - 11.0 FL LAB HEMETOLOGY METHOD 03/06/2025 7:32 AM EDT [facility] NRBC 0.0 <1.0 % LAB HEMETOLOGY METHOD 03/06/2025 7:32 AM EDT [facility] NRBC Absolute 0.00 <0.10 K/mcL LAB HEMETOLOGY METHOD 03/06/2025 7:32 AM EDT [facility] Blood Venous blood specimen / Unknown Venipuncture / Unknown 03/06/2025 6:15 AM EDT 03/06/2025 7:32 AM EDT us Kashmir Mtz MD LAB BLOOD ORDERABLE S Final Result [facility] [address] [place] [address], * Phosphorus (03/06/2025 6:15 AM EDT) Only the most recent of2 resultswithin the time period is included. Phosphorus 3.0 2.5 - 4.5 mg/dL LAB CHEMISTRY METHOD 03/06/2025 7:59 AM EDT [facility] Blood Venous blood specimen / Unknown Venipuncture / Unknown 03/06/2025 6:15 AM EDT 03/06/2025 7:11 AM EDT us Kashmir Mtz MD LAB BLOOD ORDERABLE S Final Result [facility] [address] [place] [address], [place] [phone] * Magnesium (03/06/2025 6:15 AM EDT) Only the most recent of3 resultswithin the time period is included. [facility] Magnesium 2.0 1.9 - 2.6 mg/dL LAB CHEMISTRY METHOD 03/06/2025 7:59 AM EDT [facility] Blood Venous blood specimen / Unknown Venipuncture / Unknown 03/06/2025 6:15 AM EDT 03/06/2025 7:11 AM EDT us Kashmir Mtz MD LAB BLOOD ORDERABLE S Final Result [facility] [address] [place] [address], [place] [phone] * (ABNORMAL) Basic metabolic panel (03/06/2025 6:15 AM EDT) Only the most recent of2 resultswithin the time period is included. Pathologist [facility] Sodium 138 133 - 145 mmol/L LAB CHEMISTRY METHOD 03/06/2025 7:59 AM EDT [facility] Potassium 3.8 3.5 - 5.5 mmol/L LAB CHEMISTRY METHOD 03/06/2025 7:59 AM EDT [facility] Chloride 108 96 - 110 mmol/L LAB CHEMISTRY METHOD 03/06/2025 7:59 AM T [facility] CO2 24 21 - 32 mmol/L LAB CHEMISTRY METHOD 03/06/2025 7:59 AM [facility] Anion Gap 6 3 - 11 LAB CHEMISTRY METHOD 03/06/2025 7:59 AM EDT [facility] Glucose 86 70 - 100 mg/dL LAB CHEMISTRY METHOD 03/06/2025 7:59 AM [facility] BUN 19 5 - 25 mg/dL LAB CHEMISTRY METHOD 03/06/2025 7:59 AM [facility] Creatinine 1.44(H) 0.50 - 1.10 mg/dL LAB CHEMISTRY METHOD 03/06/2025 7:59 AM [facility] eGFR 40(L) >=60 mL/min/1. 73m2 LAB CHEMISTRY METHOD 03/06/2025 7:59 AM [facility] Comment:Calculation based on the Chronic Kidney Disease Epidemiology Collaboration (CKD-EPI) equation refit without adjustment for race. BUN/Creatinine Ratio 13.2 LAB CHEMISTRY METHOD 03/06/2025 7:59 AM [facility] Calcium 8.9 8.5 - 10.5 mg/dL LAB CHEMISTRY METHOD 03/06/2025 7:59 AM [facility] Blood Venous blood specimen / Unknown Venipuncture / Unknown 03/06/2025 6:15 AM EDT 03/06/2025 7:11 AM EDT us Kashmir Mtz MD LAB BLOOD ORDERABLE S Final Result [facility] [address] [place] [address], [place] [phone] * Lactate, with reflex (03/04/2025 7:43 AM EDT) LACTIC ACID 1.5 0.4 - 2.0 mmol/L LAB CHEMISTRY METHOD 03/04/2025 8:18 AM EDT [facility] Blood Venous blood specimen / Unknown Venipuncture / Unknown 03/04/2025 7:43 AM EDT 03/04/2025 7:54 AM EDT Raine MENSAH LAB BLOOD ORDERABLES Fin al Result Performing Organization Address City/[facility]/ZIP Co de Phone Number [facility] [address] [place] [address], [place] [phone] * SST tube (03/04/2025 7:40 AM EDT) Extra Tube Hold for add-ons. 03/04/2025 9:01 AM EDT [facility] Comment:Auto resulted. Blood Venous blood specimen / Unknown Venipuncture / Unknown 03/04/2025 7:40 AM EDT 03/04/2025 7:55 AM EDT us Kashmir Mtz MD LAB BLOOD ORDERABLE S Final Result Performing Organization Address City/[facility]/ZIP Co de Phone Number [facility] [address] [place] [address], [place] [phone] * Lavender tube (03/04/2025 7:40 AM EDT) Extra Tube Hold for add-ons. 03/04/2025 9:01 AM EDT [facility] Comment:Auto resulted. Blood Venous blood specimen / Unknown 03/04/2025 7:40 AM EDT 03/04/2025 7:55 AM EDT us Kashmir Mtz MD LAB BLOOD ORDERABLE S Final Result [facility] [address] [place] [address], [place] [phone] * (ABNORMAL) Urinalysis with reflex microscopic (03/04/2025 6:54 AM EDT) [place] Urine 1.031(H) 1.003 - 1.030 LAB URINALYSIS - AUTOMATED METHOD 03/04/2025 7:51 AM [facility] pH, Urine 7.0 5.0 - 8.0 pH LAB URINALYSIS - AUTOMATED METHOD 03/04/2025 7:51 AM [facility] Leukocytes, Urine Large(A) Negative LAB URINALYSIS - AUTOMATED METHOD 03/04/2025 7:51 AM [facility] Nitrite, Urine Positive(A) Negative LAB URINALYSIS - AUTOMATED METHOD 03/04/2025 7:51 AM [facility] Protein, Urine 100(A) <=Trace mg/dL LAB URINALYSIS - AUTOMATED METHOD 03/04/2025 7:51 AM [facility] Glucose, Urine Negative Negative mg/dL LAB URINALYSIS - AUTOMATED METHOD 03/04/2025 7:51 AM [facility] Ketones, Urine Negative Negative mg/dL LAB URINALYSIS - AUTOMATED METHOD 03/04/2025 7:51 AM [facility] Urobilinogen , Urine 0.2 0.2 - 1.0 mg/dL LAB URINALYSIS - AUTOMATED METHOD 03/04/2025 7:51 AM [facility] Bilirubin, Urine Negative Negative LAB URINALYSIS - AUTOMATED METHOD 03/04/2025 7:51 AM [facility] Blood, Urine Moderate(A) Negative LAB URINALYSIS - AUTOMATED METHOD 03/04/2025 7:51 AM [facility] RBC, Urine 20(H) 0 - 4 /HPF LAB URINALYSIS - AUTOMATED METHOD 03/04/2025 7:51 AM EDT [facility] WBC, Urine 345.2(H) 0 - 4 /HPF LAB URINALYSIS - AUTOMATED METHOD 03/04/2025 7:51 AM EDT [facility] Squamous Epithelial, Urine 27 0 - 60 /LPF LAB URINALYSIS - AUTOMATED METHOD 03/04/2025 7:51 AM EDT [facility] Bacteria, Urine Many(A) Negative /HPF LAB URINALYSIS - AUTOMATED METHOD 03/04/2025 7:51 AM EDT [facility] Hyaline Casts, Urine 0.4 0 - 3 /LPF LAB URINALYSIS - AUTOMATED METHOD 03/04/2025 7:51 AM EDT [facility] Urine Urine specimen obtained by clean catch procedure / Unknown Non-blood Collection / Unknown 03/04/2025 6:54 AM EDT 03/04/2025 7:24 AM EDT Raine MENSAH LAB URINE ORDERABLES Fin al Result Performing Organization Address City/[facility]/ZIP Co de Phone Number [facility] [address] [place] [address], [place] [phone] * (ABNORMAL) Blood culture pathogens molecular study (03/04/2025 6:44 AM EDT) Escherichia coli Detected (A) Not Detected LAB MICROBIOLOGY METHOD 03/04/2025 7:30 PM EDT [facility] Blood Venous blood specimen / Unknown Venipuncture / Unknown 03/04/2025 6:44 AM EDT 03/04/2025 7:24 AM EDT Raine MENSAH LAB MICROBIOLOGY - GENER AL ORDERABLES Final Result Performing Organization Address City/[facility]/ZIP Co de Phone Number [facility] [address] [place] [address], [place] [phone] * (ABNORMAL) Blood Culture, Peripheral Draw #2 (03/04/2025 6:44 AM EDT) Only the most recent of2 resultswithin the time period is included. Culture, Blood Escherichia coli(AA) AIDA 03/06/2025 8:53 AM EDT [facility] Comment: The organism value for this result has been updated. These results have been appended to the previously preliminary verified report. This is an edited result. Previous organism was Gram negative bacilli on 03/05/2025 at 0832 EDT. Gram Stain Result Aerobic and Anaerobic bottles Gram negative bacilli(AA) 03/06/2025 8:53 AM EDT [facility] Comment:This is an appended report. These [...] ug/ml: Susceptible Raine MENSAH LAB MICROBIOLOGY - [facility] AL ORDERABLES Final Result [facility] [address] [place] [address], * CT Abdomen Pelvis w Contrast (03/04/2025 [...] MENSAH IM CT PROCEDURES Final Result * [id number], RSV, Influenza A and B qualitative RT-PCR (03/04/2025 3:20 AM EDT) Pathologist [facility] Influenza A PCR Not Detected Not Detected LAB MICROBIOLOGY METHOD 03/04/2025 4:22 AM EDT [facility] Influenza B PCR Not Detected Not Detected LAB MICROBIOLOGY METHOD 03/04/2025 4:22 AM EDT [facility] RSV PCR Not Detected Not Detected LAB MICROBIOLOGY METHOD 03/04/2025 4:22 AM EDT [facility] SARS COV-2 Not Detected Not Detected LAB MICROBIOLOGY METHOD 03/04/2025 4:22 AM EDT [facility] Swab Both anterior nares / Unknown Non-blood Collection / Unknown 03/04/2025 3:20 AM EDT 03/04/2025 3:38 AM EDT Narrative [facility] - 03/04/2025 4:22 AM EDT Disclaimer: Testing was performed using the [employer] GeneXpert Xpress SARS-CoV-2 _Flu_RSV PLUS PCR assay. [...] for Healthcare providers can be found at https://www.fda.gov/media/452761/download. Fact sheet for Healthcare patients can be found at https://www.fda.gov/media/745759/download. Raine Gardiner CRNA LAB MICROBIOLOGY - GENERAL ORD ERABLES Final Result Performing Organization Address City/[facility]/ZIP Co de Phone Number [facility] [address] [place] [address], * ECG-Annotated (03/04/2025) Provider Onbase MD ECG ORDERABLES Final Result * 12-Lead ECG (03/03/2025 11:54 PM EDT) Pathologist [facility] Ventricular Rate ECG 99 BPM GEMUSE Atrial Rate 99 BPM GEMUSE P-R Interval 140 ms GEMUSE QRS Duration 92 ms GEMUSE Q-T Interval 352 ms GEMUSE QTc 451 ms GEMUSE P Wave [place] 59 degrees GEMUSE R [place] 53 degrees GEMUSE T [place] 50 degrees GEMUSE ECG Interpretation Normal sinus rhythm Normal ECG When compared with ECG of 20-APR-2024 18:59, Criteria for Septal infarct are no longer Present Confirmed by SAHHRAM BLACKBURN ([id number]) on 03/04/2025 8:44:40 AM GEMUSE 03/03/2025 11:5 4 PM EDT 03/04/2025 8:44 AM EDT Raine MENSAH ECG ORDERABLES Final Re sult GEMUSE * APTT (03/03/2025 11:44 PM EDT) aPTT 31.0 24.1 - 39.3 sec LAB COAGULATION METHOD 03/04/2025 12:44 AM EDT [facility] Blood Venous blood specimen / Unknown Venipuncture / Unknown 03/03/2025 11:44 PM EDT 03/04/2025 12:28 AM EDT Raine MENSAH LAB BLOOD ORDERABLES Fin al Result Performing Organization Address City/[facility]/ZIP Co de Phone Number [facility] [address] [place] [address], [place] [phone] * Protime-INR (03/03/2025 11:44 PM EDT) [facility] Protime 11.6 10.6 - 13.9 sec LAB COAGULATION METHOD 03/04/2025 12:44 AM EDT [facility] INR 0.9 LAB COAGULATION METHOD 03/04/2025 12:44 AM EDT [facility] Blood Venous blood specimen / Unknown Venipuncture / Unknown 03/03/2025 11:44 PM EDT 03/04/2025 12:28 AM EDT Raine MENSAH LAB BLOOD ORDERABLES Fin al Result Performing Organization Address City/[facility] Co de Phone Number [facility] [address] [place] [address], [place] [phone] * (ABNORMAL) Manual differential (03/03/2025 11:38 PM EDT) Neutrophils % 85.0 % LAB HEMETOLOGY METHOD 03/04/2025 1:15 AM EDT [facility] Bands % 4.0 % LAB HEMETOLOGY METHOD 03/04/2025 1:15 AM EDT [facility] Lymphocytes % 7.0 % LAB HEMETOLOGY METHOD 03/04/2025 1:15 AM EDT [facility] Monocytes % 3.0 % LAB HEMETOLOGY METHOD 03/04/2025 1:15 AM [facility] Eosinophils % 1.0 % LAB HEMETOLOGY METHOD 03/04/2025 1:15 AM [facility] Basophils % 0.0 % LAB HEMETOLOGY METHOD 03/04/2025 1:15 AM [facility] Neutrophils Absolute Manual 18.79(H) 1.50 - 7.00 K/mcL LAB HEMETOLOGY METHOD 03/04/2025 1:15 AM [facility] Bands Absolute Manual 0.88(H) 0.00 - 0.00 K/mcL LAB HEMETOLOGY METHOD 03/04/2025 1:15 AM [facility] Lymphocytes Absolute 1.55 1.00 - 5.00 K/mcL LAB HEMETOLOGY METHOD 03/04/2025 1:15 AM [facility] Monocytes Absolute Manual 0.66 0.20 - 1.00 K/mcL LAB HEMETOLOGY METHOD 03/04/2025 1:15 AM [facility] Eosinophils Absolute Manual 0.22 0.00 - 0.50 K/mcL LAB HEMETOLOGY METHOD 03/04/2025 1:15 AM [facility] Basophils Absolute Manual 0.00 0.00 - 0.20 K/mcL LAB HEMETOLOGY METHOD 03/04/2025 1:15 AM [facility] Rbc Morphology Consistent with indices Consistent with indices, Normal for LAB HEMETOLOGY METHOD 03/04/2025 1:15 AM [facility] Platelet Morphology - WAM Normal Normal LAB HEMETOLOGY METHOD 03/04/2025 1:15 AM [facility] Vacuolated Neutrophils Present Present(A) (none) LAB HEMETOLOGY METHOD 03/04/2025 1:15 AM [facility] Blood Venous blood specimen / Unknown Venipuncture / Unknown 03/03/2025 11:38 PM EDT 03/04/2025 12:28 AM EDT us Raine Gardiner CRNA LAB BLOOD ORDERABLES Final Res ult [facility] [address] [place] [address], * (ABNORMAL) CBC auto differential (03/03/2025 11:38 PM EDT) WBC 22.1(H) 4.8 - 10.8 K/mcL LAB HEMETOLOGY METHOD 03/04/2025 1:15 AM EDT [facility] RBC 4.70 3.80 - 4.80 M/mcL LAB HEMETOLOGY METHOD 03/04/2025 1:15 AM EDT [facility] Hemoglobin 14.2 11.5 - 16.0 g/dL LAB HEMETOLOGY METHOD 03/04/2025 1:15 AM EDT [facility] Hematocrit 42.9 35.0 - 47.0 % LAB HEMETOLOGY METHOD 03/04/2025 1:15 AM EDT [facility] MCV 90.7 79.0 - 98.0 FL LAB HEMETOLOGY METHOD 03/04/2025 1:15 AM EDT [facility] MCH 30.0 27.0 - 32.0 pcg LAB HEMETOLOGY METHOD 03/04/2025 1:15 AM EDT [facility] MCHC 33.1 32.0 - 37.0 g/dL LAB HEMETOLOGY METHOD 03/04/2025 1:15 AM EDT [facility] RDW 13.4 11.0 - 15.0 % LAB HEMETOLOGY METHOD 03/04/2025 1:15 AM EDT [facility] Platelets 418(H) 130 - 400 K/mcL LAB HEMETOLOGY METHOD 03/04/2025 1:15 AM EDT [facility] MPV 9.7 7.0 - 11.0 FL LAB HEMETOLOGY METHOD 03/04/2025 1:15 AM EDT [facility] NRBC 0.0 <1.0 % LAB HEMETOLOGY METHOD 03/04/2025 1:15 AM EDT [facility] NRBC Absolute 0.00 <0.10 K/mcL LAB HEMETOLOGY METHOD 03/04/2025 1:15 AM EDT [facility] Blood Venous blood specimen / Unknown Venipuncture / Unknown 03/03/2025 11:38 PM EDT 03/04/2025 12:28 AM EDT Raine Gardiner CRNA LAB BLOOD ORDERABLES Final Res ult Performing Organization Address City/[facility]/ZIP Co de Phone Number [facility] [address] [place] [address], [place] [phone] * Lipase (03/03/2025 11:38 PM EDT) Lipase 31 13 - 75 unit/L LAB CHEMISTRY METHOD 03/04/2025 1:09 AM EDT [facility] Blood Venous blood specimen / Unknown Venipuncture / Unknown 03/03/2025 11:38 PM EDT 03/04/2025 12:28 AM EDT Raine Gardiner CRNA LAB BLOOD ORDERABLES Final Res ult [facility] [address] [place] [address], [place] [phone] * (ABNORMAL) Comprehensive metabolic panel (03/03/2025 11:38 PM EDT) Sodium 134 133 - 145 mmol/L LAB CHEMISTRY METHOD 03/04/2025 1:09 AM EDT [facility] Potassium 3.4(L) 3.5 - 5.5 mmol/L LAB CHEMISTRY METHOD 03/04/2025 1:09 AM [facility] Chloride 104 96 - 110 mmol/L LAB CHEMISTRY METHOD 03/04/2025 1:09 AM [facility] CO2 25 21 - 32 mmol/L LAB CHEMISTRY METHOD 03/04/2025 1:09 AM [facility] Anion Gap 5 3 - 11 LAB CHEMISTRY METHOD 03/04/2025 1:09 AM [facility] Glucose 101(H) 70 - 100 mg/dL LAB CHEMISTRY METHOD 03/04/2025 1:09 AM [facility] BUN 23 5 - 25 mg/dL LAB CHEMISTRY METHOD 03/04/2025 1:09 AM [facility] Creatinine 1.59(H) 0.50 - 1.10 mg/dL LAB CHEMISTRY METHOD 03/04/2025 1:09 AM [facility] eGFR 36(L) >=60 mL/min/1. 73m2 LAB CHEMISTRY METHOD 03/04/2025 1:09 AM [facility] Comment:Calculation based on the Chronic Kidney Disease Epidemiology Collaboration (CKD-EPI) equation refit without adjustment for race. BUN/Creatinine Ratio 14.5 LAB CHEMISTRY METHOD 03/04/2025 1:09 AM [facility] Calcium 9.2 8.5 - 10.5 mg/dL LAB CHEMISTRY METHOD 03/04/2025 1:09 AM [facility] AST (SGOT) 39 10 - 42 unit/L LAB CHEMISTRY METHOD 03/04/2025 1:09 AM [facility] ALT (SGPT) 30 10 - 60 unit/L LAB CHEMISTRY METHOD 03/04/2025 1:09 AM [facility] Alkaline Phosphatase 118 42 - 121 unit/L LAB CHEMISTRY METHOD 03/04/2025 1:09 AM EDT [facility] Total Protein 7.2 6.0 - 8.0 g/dL LAB CHEMISTRY METHOD 03/04/2025 1:09 AM EDT [facility] Albumin 3.7 3.2 - 5.0 g/dL LAB CHEMISTRY METHOD 03/04/2025 1:09 AM EDT [facility] Total Bilirubin 0.9 0.0 - 1.4 mg/dL LAB CHEMISTRY METHOD 03/04/2025 1:09 AM EDT [facility] Blood Venous blood specimen / Unknown Venipuncture / Unknown 03/03/2025 11:38 PM EDT 03/04/2025 12:28 AM EDT us Raine Gardiner CRNA LAB BLOOD ORDERABLES Final Res ult [facility] [address] [place] [address], * [facility] SCREENING DIGITAL (11/29/2023 1:12 PM EDT) Anatomical Region Laterality Modality Mammography 11/29/2023 11:1 5 AM EDT Narrative 11/29/2023 1:[address] [facility] Diagnostic Imaging Department [address] [place] [address] Patient: MEDHAT PEDROZA./Age/Sex: 1960 - 63 - F Unit#: [id number] Location/Status: SPDIMAM/REG CLI Mnemonic[facility]: DAVID WALL [facility] Screening Digital - 11/29/23 - Report Status:Signed EXAM: [facility] Screening Digital EXAM DATE AND TIME: 11/29/2023 11:38 AM HISTORY: Annual screening COMPARISON: Multiple exams dating back to 2019 TECHNIQUE: Bilateral digital breast tomosynthesis was performed in the CC and MLO projections. Computer aided detection with Pact 3D 3.1 was employed. TISSUE DENSITY: b. [...] Procedure Note Patrick Harris MD - 04/10/2024 [facility] Diagnostic Imaging Department [address] [place] [address] Patient: MEDHAT PEDROZA/Age/Sex: 1960 - 63 - F Unit#: [id number] Location/Status: SPDIMAM/REG CLI Mnemonic/Ordering Site: [facility] Ordering Physician: DAVID WALL Dalton Screening Digital - 11/29/23 - Report Status:Signed EXAM: [facility] Screening Digital EXAM DATE AND TIME: 11/29/2023 11:38 AM HISTORY: Annual screening COMPARISON: Multiple exams dating back to 2019 TECHNIQUE: Bilateral digital breast tomosynthesis was performed in the CCand MLO projections. Computer aided detection with Pact 3D 3.1was employed. TISSUE DENSITY: b. There [...] screening mammogram BILATERAL in 1 year. 3341F, 7056F Dictating Physician: PATRICK HARRIS MD Electronically Signed by: PATRICK HARRIS MD Dic Date/Time: 11/29/23 1311 Sign date/Time: 11/29/23 1312 David MENSAH IMG BI PROCEDURES Final Result from Last 3 Months or Most Recently Relevant to Health Maintenance Insurance [facility] Member Subscriber Plan / Payer (Ef fective 2023-Present) Name:Medhat Pedroza Relation to Subscriber:Self Name:Medhat Pedroza Payer ID:[id number] Group ID:[id number] Type:Not on file Address: [facility] [address] [phone] Advance Directives * Full Code - Default [...] currently active code status orders. Care Teams Mri Ct Tech Relationship Specialty Start Date End Date David Wall PA [address] [place] [id number] PCP - General Internal Medicine 03/26/19
== END 2025-03-31 14:16 | disposition home or self-care (01) ==
LOC: HO.HNS 13:15
PROVIDERS: PCP Physician Assistant; Visit Provider Physician Assistant
DX: Z98.1 Arthrodesis status (principal)
CPT/HCPCS: 99212

== ENCOUNTER → 2025-03-31 13:14 | Outpatient (BNVA) | payer OTHER, SELFPAY | PROVIDERS: PCP Physician Assistant; Visit Provider Physician Assistant | DX: Z98.1 Arthrodesis status (principal) | CPT/HCPCS: 99212 ==